=== PATIENT | female | born 1995 | race Caucasian/White ===

== ENCOUNTER 2016-09-11 07:55 | Emergency (ER) | payer BC, MEDICAID ==
[2016-09-11 08:11] VITALS: BP 115/71
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
== END 2016-09-11 08:43 ==
LOC: JD.ED 07:55
DX: T74.91XA Unspecified adult maltreatment, confirmed, initial encounter (principal); F32.9 Major depressive disorder, single episode, unspecified; Z79.899 Other long term (current) drug therapy; F17.210 Nicotine dependence, cigarettes, uncomplicated; Y07.499 Other family member, perpetrator of maltreatment and neglect
CPT/HCPCS: 99282; 99283

== ENCOUNTER 2017-01-24 10:01 | Emergency (ER) | payer BC ==
[2017-01-24 10:12] VITALS: BP 127/84
[2017-01-24] MEDS ORDERED: HYDROmorphone 0.5 MG/0.5 ML Syringe IVPUSH STA (11:07)
[2017-01-24] MEDS ORDERED: Metoclopramide 10 MG/2 ML SDV IVPUSH STA (11:07)
[2017-01-24] MEDS ORDERED: Dextrose 5%-0.9% NaCl 1,000 ML IV SCH (11:15)
--- NOTE | 2017-01-24 11:32 | EDM.PDOC ---
ED HPI GENERAL MEDICAL PROBLEM - General Chief Complaint: Headache Stated Complaint: Headache Time Seen by Provider: 01/24/17 11:00 Source of Information: Reports: Patient, RN Notes Reviewed History Limitations: Reports: No Limitations - History of Present Illness INITIAL COMMENTS - FREE TEXT/NARRATIVE: 21 year old female presents to the ED today with complaints of headache that awoke her from sleep this morning. The pain is bilateral and behind her eyes. The headaches involves her entire cranium. She has associated nausea and vomiting, photophobia and phonophobia. She reports blurry vision earlier but has since resolved. She tried taking Tylenol but vomited it up. No weakness in extremities, speech changes, or confusion. She had 5 positive tests 2 days ago at home. She tried getting into her OBGYN but wasn't able to. She is 3 Para 1, history of 1 miscarriage. She also has a history of hyperemesis . Headache Pain Score (Numeric/FACES): 10 - Related Data Allergies Allergy/AdvReac Type Severity Reaction Status Date / Time No Known Allergies Allergy Verified 01/24/17 10:12 Home Meds: Home Meds . 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 Other OB/BYN History: miscarriage Psychiatric History: Reports: Depression Other Psychiatric History: post- depression - Past Surgical History HEENT Surgical History: Reports: Oral Surgery Female Surgical History: Reports: Dilitation & Evacuation, Other (See Below) Social & Family History - Family History Family Medical History: Noncontributory - Tobacco Use Smoking Status *Q: Never Smoker Years of Tobacco use: 4 Packs/Tins Daily: 0.1 Used Tobacco, but Quit: Yes Month Tobacco Last Used: 05/2015 Second Hand Smoke Exposure: No - Caffeine Use Caffeine Use: Reports: Coffee - Alcohol Use Days Per Week of Alcohol Use: 0 - Recreational Drug Use Recreational Drug Use: No Drug Use in Last 12 Months: Yes Recreational Drug Type: Reports: Marijuana/Hashish Recreational Drug Use Frequency: Rarely - Living Situation & Occupation Living situation: Reports: Occupation: Unemployed ED ROS GENERAL - Review of Systems Review Of Systems: See Below Constitutional: Reports: No Symptoms. Denies: Fever, Chills HEENT: Reports: Vision Change. Denies: Ear Pain, Eye Pain, Vertigo Respiratory: Reports: No Symptoms Cardiovascular: Reports: No Symptoms GI/Abdominal: Reports: Nausea, Vomiting. Denies: Abdominal Pain Neurological: Reports: Headache. Denies: Confusion, Dizziness, Numbness, Tingling, Difficulty Walking, Weakness - Physical Exam Exam: See Below Exam Limited By: No Limitations General Appearance: Alert, WD/WN, No Apparent Distress Eye Exam: Bilateral Eye: EOMI, Normal Inspection, PERRL Head Exam: Atraumatic, Normocephalic Neck: Normal Inspection, Supple, Non-Tender, Full Range of Motion Respiratory/Chest: No Respiratory Distress, Lungs Clear, Normal Breath Sounds Cardiovascular: Regular Rate, Rhythm Neuro Exam (Abbreviated): Alert, Oriented, CN II-XII Intact, Normal Cognition, Normal Gait, No Motor/Sensory Deficits, Other (cerebellar testing intact ) Course - Vital Signs Last Recorded V/S: Last Vital Signs Temp 97.2 F 01/24/17 10:08 Pulse 90 01/24/17 10:08 Resp 16 01/24/17 10:08 BP 127/84 01/24/17 10:08 Pulse Ox 95 01/24/17 10:08 - Orders/Labs/Meds Orders: Active Orders 24 hr Category Date Time Status Dextrose 5%-0.9% NaCl [Dextrose 5%-Normal Saline] 1,000 Med 01/24/17 11:15 Active ml IV ASDIRECTED Medication Orders Dextrose/Sodium Chloride (Dextrose 5%-Normal Saline) 1,000 mls @ 250 mls/hr IV ASDIRECTED MAULIK Last Admin: 01/24/17 11:14 Dose: 250 mls/hr Meds: Medications Generic Name Dose Route Start Last Admin Trade Name Freq PRN Reason Stop Dose Admin Dextrose/Sodium Chloride 1,000 mls @ 250 mls/hr 01/24/17 11:15 01/24/17 11:14 Dextrose 5%-Normal Saline IV 250 mls/hr ASDIRECTED MAULIK Administration Discontinued Medications Generic Name Dose Route Start Last Admin Trade Name Freq PRN Reason Stop Dose Admin Hydromorphone HCl 0.5 mg 01/24/17 11:07 01/24/17 11:17 Dilaudid IVPUSH 01/24/17 11:08 0.5 mg ONETIME STA Administration Metoclopramide HCl 5 mg 01/24/17 11:07 01/24/17 11:14 Reglan IVPUSH 01/24/17 11:08 5 mg ONETIME STA Administration - Re-Assessments/Exams Free Text/Narrative Re-Assessment/Exam: Neuro exam and vital signs today are normal. No indication for imaging. Treated with D5NS bolus, Dilaudid, and Reglan. Patient had complete resolution of symptoms. She will be discharged. Prescription for diclegis compound from [facility] was phoned in. Patient educated on medication and return precautions. Departure - Departure Time of Disposition: 11:50 Disposition: Home, Self-Care 01 Condition: Good Clinical Impression: Headache in Qualifiers: Trimester: first trimester Qualified Code(s): O26.891 - Other specified related conditions, first trimester Nausea & vomiting Qualifiers: Vomiting type: unspecified Vomiting Intractability: non-intractable Qualified Code(s): R11.2 - Nausea with vomiting, unspecified - Discharge Information Referrals: Martita Farias PA-C [Primary Care Provider] - Forms: ED Department Discharge Additional Instructions: Rest and drink plenty of fluids No driving today due to sedating medications given in the ER Start Diclegis compound from [facility], take 1 tab at bedtime and may increase to a total of 3 tabs per day as needed for nausea This was called to [facility] pharmacy. Follow-up with your OBGYN if you continue to have nausea and vomiting not relieved by the Diclegis. Return to Er with any new or worsening symptoms. - My Orders Last 24 Hours: My Active Orders 01/24/17 11:15 Dextrose 5%-0.9% NaCl [Dextrose 5%-Normal Saline] 1,000 ml IV ASDIRECTED - Assessment/Plan Last 24 Hours: My Active Orders 01/24/17 11:15 Dextrose 5%-0.9% NaCl [Dextrose 5%-Normal Saline] 1,000 ml IV ASDIRECTED
== END 2017-01-24 12:05 | disposition home or self-care (01) ==
LOC: JD.ED 10:01
DX: O26.891 Other specified pregnancy related conditions, first trimester (principal); R51 Headache; O21.9 Vomiting of pregnancy, unspecified; F32.9 Major depressive disorder, single episode, unspecified; Z98.890 Other specified postprocedural states
CPT/HCPCS: 96361; 96374; 96375; 99284; J1170; J2765; J7042; 99283

== ENCOUNTER 2017-02-19 12:08 | Emergency (ER) | payer BC, MEDICAID ==
[2017-02-19] MEDS ORDERED: HYDROmorphone 0.5 MG/0.5 ML Syringe IVPUSH ONE ×2 (12:51→13:52)
[2017-02-19] MEDS ORDERED: Ondansetron 4 MG/2 ML SDV IVPUSH ONE (12:52)
[2017-02-19] MEDS ORDERED: Sodium Chloride 0.9% 10 ML Syringe FLUSH PRN (12:52)
[2017-02-19] MEDS ORDERED: Sodium Chloride 0.9% 1,000 ML IV SCH (13:00)
[2017-02-19] MEDS ORDERED: Acetaminophen 325 MG Tab PO ONE (13:52)
--- NOTE | 2017-02-19 14:15 | EDM.PDOC ---
ED HPI GENERAL MEDICAL PROBLEM - General Chief Complaint: Headache Stated Complaint: 8 WEEKS PREG/ HEADACHES Time Seen by Provider: 02/19/17 12:31 Source of Information: Reports: Patient, RN Notes Reviewed - History of Present Illness INITIAL COMMENTS - FREE TEXT/NARRATIVE: 21-year-old female comes in with headache, nausea and vomiting. She is about 7- 8 weeks . She's been having trouble with intermittent headaches for about the past month or so. She did have an ED visit for similar headache about 1 month ago. Her headache became much worse yesterday continuing today. Did take some Tylenol early this morning about 12 hours ago. Taken some Zofran about 8-10 hours ago. Spite that she continues to feel very nauseated and continues to have what she describes as fairly severe bilateral throbbing headache. No recent fever or chills. No neck or back discomfort. 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 Other OB/BYN History: miscarriage Psychiatric History: Reports: Depression Other Psychiatric History: post- depression - Past Surgical History HEENT Surgical History: Reports: Oral Surgery Female Surgical History: Reports: Dilitation & Evacuation, Other (See Below) Social & Family History - Family History Family Medical History: Noncontributory - Tobacco Use Smoking Status *Q: Never Smoker Years of Tobacco use: 4 Packs/Tins Daily: 0.1 Used Tobacco, but Quit: Yes Month Tobacco Last Used: 05/2015 Second Hand Smoke Exposure: No - Caffeine Use Caffeine Use: Reports: Coffee - Alcohol Use Days Per Week of Alcohol Use: 0 - Recreational Drug Use Recreational Drug Use: No Drug Use in Last 12 Months: Yes Recreational Drug Type: Reports: Marijuana/Hashish Recreational Drug Use Frequency: Rarely - Living Situation & Occupation Living situation: Reports: Occupation: Unemployed ED ROS GENERAL - Review of Systems Review Of Systems: See Below Constitutional: Denies: Fever, Chills HEENT: Denies: Sinus Problem, Vision Change Respiratory: Denies: Shortness of Breath Cardiovascular: Denies: Chest Pain GI/Abdominal: Reports: Nausea, Vomiting. Denies: Abdominal Pain Musculoskeletal: Denies: Neck Pain, Back Pain, Joint Pain Skin: Reports: No Symptoms Neurological: Reports: Headache. Denies: Trouble Speaking - Physical Exam Exam: See Below General Appearance: Alert, Moderate Distress Eye Exam: Bilateral Eye: PERRL Nose: Normal Inspection Throat/Mouth: Normal Inspection, Normal Oropharynx Head Exam: Atraumatic. No: Facial Swelling Neck: Supple, Full Range of Motion Respiratory/Chest: No Respiratory Distress, Lungs Clear Cardiovascular: Regular Rate, Rhythm Neuro Exam (Abbreviated): Alert, Oriented, No Motor/Sensory Deficits Extremities: Normal Inspection, Normal Range of Motion Skin Exam: Warm, Dry, Normal Color. No: Rash Course - Vital Signs Last Recorded V/S: Last Vital Signs Temp 98.7 F 02/19/17 12:26 Pulse 88 02/19/17 12:26 Resp 16 02/19/17 12:26 BP 117/73 02/19/17 12:26 Pulse Ox 100 02/19/17 12:26 - Orders/Labs/Meds Orders: Active Orders 24 hr Category Date Time Status Peripheral IV Care [RC] . DIRECTED Care 02/19/17 12:52 Active Sodium Chloride 0.9% [Normal Saline] 1,000 ml Med 02/19/17 13:00 Active IV ONETIME Sodium Chloride 0.9% [Saline Flush] Med 02/19/17 12:52 Active 10 ml FLUSH ASDIRECTED PRN Peripheral IV Insertion Adult [OM.PC] Stat Oth 02/19/17 12:52 Ordered Medication Orders Sodium Chloride (Normal Saline) 1,000 mls @ 999 mls/hr IV ONETIME MAULIK Last Admin: 02/19/17 13:13 Dose: 999 mls/hr Sodium Chloride (Saline Flush) 10 ml FLUSH ASDIRECTED PRN PRN Reason: Keep Vein Open Last Admin: 02/19/17 13:38 Dose: 10 ml Meds: Medications Generic Name Dose Route Start Last Admin Trade Name Freq PRN Reason Stop Dose Admin Sodium Chloride 1,000 mls @ 999 mls/hr 02/19/17 13:00 02/19/17 13:13 Normal Saline IV 999 mls/hr ONETIME MAULIK Administration Sodium Chloride 10 ml 02/19/17 12:52 02/19/17 13:38 Saline Flush FLUSH 10 ml ASDIRECTED PRN Administration Keep Vein Open Discontinued Medications Generic Name Dose Route Start Last Admin Trade Name Nicole PRN Reason Stop Dose Admin Acetaminophen 975 mg 02/19/17 13:52 02/19/17 14:02 Tylenol PO 02/19/17 13:53 975 mg NOW ONE Administration Diphenhydramine HCl 25 mg 02/19/17 14:45 02/19/17 15:06 Benadryl IVPUSH 02/19/17 14:46 25 mg ONETIME ONE Administration Hydromorphone HCl 0.5 mg 02/19/17 12:51 02/19/17 13:11 Dilaudid IVPUSH 02/19/17 12:52 0.5 mg ONETIME ONE Administration Hydromorphone HCl 0.5 mg 02/19/17 13:52 02/19/17 14:01 Dilaudid IVPUSH 02/19/17 13:53 0.5 mg ONETIME ONE Administration Metoclopramide HCl 2.5 mg 02/19/17 14:45 02/19/17 15:04 Reglan IVPUSH 02/19/17 14:46 2.5 mg ONETIME ONE Administration Ondansetron HCl 4 mg 02/19/17 12:52 02/19/17 13:13 Zofran IVPUSH 02/19/17 12:53 4 mg ONETIME ONE Administration - Re-Assessments/Exams Free Text/Narrative Re-Assessment/Exam: 02/19/17 13:50. Nausea has resolved, however headache still "fairly severe". Due to her first trimester I am more limited with meds that I can use to help treat this. Have given Dilaudid 0.5 mg IV and Zofran 4 mg IV. She is not sleepy or drowsy. Therefore repeat the Dilaudid 0.5 mg IV. Also give Tylenol 975 by mouth at this time. 02/19/17 14:46 some but still not much relief, still rating the Meek an "8-9". she looks more relaxed from arrival, still not drowsy to where she feels she can go home and sleep. Will give a small does of reglan and benadryl 25 mg IV. 02/19/17 15:26. Feeling much better, discharge instructions as documented Departure - Departure Time of Disposition: 15:27 Disposition: Home, Self-Care 01 Condition: Fair Clinical Impression: Migraine, First trimester - Discharge Information Referrals: Zeinab Monzon MD [Primary Care Provider] - Forms: ED Department Discharge Additional Instructions: rest, no driving the remainder of today. You may continue tylenol 2 to 3 times daily if needed for further headache. Follow up with your regular medical provider if not much better by Tuesday, return to ED if symptoms worsening in any way. - My Orders Last 24 Hours: My Active Orders 02/19/17 12:52 Peripheral IV Care [RC] . DIRECTED Sodium Chloride 0.9% [Saline Flush] 10 ml FLUSH ASDIRECTED PRN Peripheral IV Insertion Adult [OM.PC] Stat 02/19/17 13:00 Sodium Chloride 0.9% [Normal Saline] 1,000 ml IV ONETIME - Assessment/Plan Last 24 Hours: My Active Orders 02/19/17 12:52 Peripheral IV Care [RC] . DIRECTED Sodium Chloride 0.9% [Saline Flush] 10 ml FLUSH ASDIRECTED PRN Peripheral IV Insertion Adult [OM.PC] Stat 02/19/17 13:00 Sodium Chloride 0.9% [Normal Saline] 1,000 ml IV ONETIME
[2017-02-19] MEDS ORDERED: Metoclopramide 10 MG/2 ML SDV IVPUSH ONE (14:45)
[2017-02-19] MEDS ORDERED: diphenhydrAMINE 50 MG/ML SDV IVPUSH ONE (14:45)
[2017-02-19 16:28] VITALS: BP 107/64
== END 2017-02-19 15:54 | disposition home or self-care (01) ==
LOC: JD.ED 12:08
DX: O99.351 Diseases of the nervous system complicating pregnancy, first trimester (principal); G43.909 Migraine, unspecified, not intractable, without status migrainosus; Z79.899 Other long term (current) drug therapy; Z3A.08 8 weeks gestation of pregnancy
CPT/HCPCS: 96361; 96374; 96375; 99283; A9270; J1170; J1200; J2405; J2765; J7040; J7050; 99284

== ENCOUNTER 2017-03-18 14:43 | Emergency (ER) | payer MEDICAID ==
[2017-03-18] MEDS ORDERED: Metoclopramide 10 MG/2 ML SDV IVPUSH ONE (14:54)
[2017-03-18] MEDS ORDERED: HYDROmorphone 0.5 MG/0.5 ML Syringe IVPUSH ONE (14:54)
[2017-03-18] MEDS ORDERED: diphenhydrAMINE 50 MG/ML SDV IVPUSH ONE (14:55)
[2017-03-18 14:56] VITALS: BP 132/81
--- NOTE | 2017-03-18 14:59 | EDM.PDOC ---
ED HPI GENERAL MEDICAL PROBLEM - General Chief Complaint: Headache Stated Complaint: HEADACHE/VOMITING Time Seen by Provider: 03/18/17 14:54 Source of Information: Reports: Patient History Limitations: Reports: No Limitations - History of Present Illness INITIAL COMMENTS - FREE TEXT/NARRATIVE: 21-year-old female presents to the ED with a severe headache that she awoke with at 3:00 this morning. It is bilateral headache with constant throbbing pain. Associated nausea and vomiting and hasn't kept anything down today. Bilious emesis without blood. No fever no chills. She is prone to migraine headaches. She's been a little sicker with her the last few days with more nausea and vomiting. But clinically 11 weeks gestation. No diarrhea. She is photophobic and sounds sound louder than the or. States his headache is a little bit more intense than what she is experienced in the past. No paresthesias numbness or focal deficits in her extremities. Onset: Today Onset Date: 03/18/17 Onset Time: 03:00 Duration: Hour(s): Location: Reports: Head (Severe headache with associated nausea and vomiting) Quality: Reports: Ache, Throbbing, Other (Pounding) Severity: Severe (Grades the headache as 9 out of 10.) Improves with: Reports: None Worsens with: Reports: Other, Movement Context: Denies: Activity (Walking and standing. 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 Frontal Head Pain Score (Numeric/FACES): 10 - Related Data Allergies Allergy/AdvReac Type Severity Reaction Status Date / Time No Known Allergies Allergy Verified 03/18/17 14:56 Home Meds: Home Meds Acetaminophen with Codeine [Tylenol with Codeine #3 Tablet] 1 tab PO DAILY PRN 03/18/17 [History] Pnv with Ca,No.74/Iron/Fa [ Low Iron Tablet] 1 tab PO DAILY 03/18/17 [ History] Past Medical History - Past Health History Medical/Surgical History: Denies 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: , 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 Other OB/BYN History: miscarriage Psychiatric History: Reports: Depression Other Psychiatric History: post- depression - Past Surgical History HEENT Surgical History: Reports: Oral Surgery Female Surgical History: Reports: Dilitation & Evacuation, Other (See Below) Social & Family History - Family History Family Medical History: Noncontributory - Tobacco Use Smoking Status *Q: Never Smoker Years of Tobacco use: 4 Packs/Tins Daily: 0.1 Used Tobacco, but Quit: Yes Month Tobacco Last Used: 05/2015 Second Hand Smoke Exposure: No - Caffeine Use Caffeine Use: Reports: Coffee - Alcohol Use Days Per Week of Alcohol Use: 0 - Recreational Drug Use Recreational Drug Use: No Drug Use in Last 12 Months: Yes Recreational Drug Type: Reports: Marijuana/Hashish Recreational Drug Use Frequency: Rarely - Living Situation & Occupation Living situation: Reports: Occupation: Unemployed ED ROS GENERAL - Review of Systems Review Of Systems: See Below Constitutional: Reports: Malaise, Weakness, Fatigue. Denies: Fever, Chills HEENT: Reports: Other Respiratory: Reports: No Symptoms Cardiovascular: Reports: No Symptoms Endocrine: Reports: Fatigue GI/Abdominal: Reports: Abdominal Pain (Upper abdominal pain from vomiting so much.), Nausea, Vomiting (Bilious emesis.) : Reports: Frequency Musculoskeletal: Reports: Neck Pain Skin: Reports: No Symptoms (Some neck pain.) Neurological: Reports: Dizziness, Headache, Difficulty Walking, Weakness (Due to being sensitive to light.). Denies: Numbness, Seizure, Syncope (See history of present illness), Tingling, Change in Speech Psychiatric: Reports: No Symptoms Hematologic/Lymphatic: Reports: No Symptoms Immunologic: Reports: No Symptoms - Physical Exam Exam: See Below Exam Limited By: No Limitations General Appearance: Alert, Moderate Distress (Tries to keep her eyes closed en bloc off the light.) Eye Exam: Bilateral Eye: Normal Inspection, PERRL Nose: Normal Inspection, Normal Mucosa, No Blood Throat/Mouth: Normal Inspection, Normal Lips, Normal Teeth, Other Head Exam: Atraumatic, Normocephalic Neck: Normal Inspection, Supple, Non-Tender, Full Range of Motion. No: Lymphadenopathy (L), Lymphadenopathy (R) Respiratory/Chest: No Respiratory Distress, Lungs Clear, Normal Breath Sounds, No Accessory Muscle Use Cardiovascular: Normal Peripheral Pulses, Regular Rate, Rhythm, No Edema, No Gallop GI/Abdominal: Normal Bowel Sounds, Soft, Non-Tender, No Organomegaly, No Distention, No Abnormal Bruit, No Mass, Pelvis Stable, Other (Uterus is not palpable abdominally.) Neuro Exam (Abbreviated): Alert, Oriented, CN II-XII Intact, Normal Cognition, No Motor/Sensory Deficits, Other Back Exam: Normal Inspection, Full Range of Motion. No: CVA Tenderness (L), CVA Tenderness (R) Extremities: Normal Inspection, Normal Range of Motion, Non-Tender, Normal Capillary Refill Psychiatric: Anxious, Tearful Skin Exam: Warm, Dry, Intact, Pallor (Mild) Course - Vital Signs Last Recorded V/S: Last Vital Signs Temp 36.4 C 03/18/17 14:52 Pulse 117 H 03/18/17 14:52 Resp 20 03/18/17 14:52 BP 132/81 03/18/17 14:52 Pulse Ox 99 03/18/17 14:52 - Orders/Labs/Meds Orders: Active Orders 24 hr Category Date Time Status Dextrose 5%-0.9% NaCl [Dextrose 5%-Normal Saline] 1,000 Med 03/18/17 15:00 Active ml IV ASDIRECTED Medication Orders Dextrose/Sodium Chloride (Dextrose 5%-Normal Saline) 1,000 mls @ 999 mls/hr IV ASDIRECTED MAULIK Last Admin: 03/18/17 15:28 Dose: 999 mls/hr Meds: Medications Generic Name Dose Route Start Last Admin Trade Name Freq PRN Reason Stop Dose Admin Dextrose/Sodium Chloride 1,000 mls @ 999 mls/hr 03/18/17 15:00 03/18/17 15:28 Dextrose 5%-Normal Saline IV 999 mls/hr ASDIRECTED MAULIK Administration Discontinued Medications Generic Name Dose Route Start Last Admin Trade Name Freq PRN Reason Stop Dose Admin Diphenhydramine HCl 25 mg 03/18/17 14:55 03/18/17 15:32 Benadryl IVPUSH 03/18/17 14:56 25 mg ONETIME ONE Administration Hydromorphone HCl 0.5 mg 03/18/17 14:54 03/18/17 15:34 Dilaudid IVPUSH 03/18/17 14:55 0.5 mg ONETIME ONE Administration Metoclopramide HCl 7.5 mg 03/18/17 14:54 03/18/17 15:29 Reglan IVPUSH 03/18/17 14:55 7.5 mg ONETIME ONE Administration - Radiology Interpretation Free Text/Narrative:: 21-year-old female presents the ED with a severe headache which is I cranial since she awoke at 2:00 this morning. Associated constant nausea and vomiting. She is prone to migraines. She is also 11 weeks . Has been able to keep down anything today. Headache is rated as a 9 out of 10. She is photosensitive. Describes the headache as constant severe throbbing and pounding. Neuro exam is grossly normal. Plan IV D5 normal saline at open. Reglan 7.5 mg IV with Dilaudid 0.5 mg IV and Benadryl 25 mg IV for pain and nausea relief. - Re-Assessments/Exams Free Text/Narrative Re-Assessment/Exam: 03/18/17 16:19 she reports her headache is pretty well gone. She will therefore be discharged to home. She plans on going to bed for a few hours to see if she can break the headache cycle completely. Departure - Departure Time of Disposition: 16:20 Disposition: Home, Self-Care 01 Condition: Fair Clinical Impression: Migraine headache Qualifiers: Migraine type: unspecified Status migrainosus presence: without status migrainosus Intractability: not intractable Qualified Code(s): G43.909 - Migraine, unspecified, not intractable, without status migrainosus - Discharge Information Referrals: Zeinab Monzon MD [Primary Care Provider] - Forms: ED Department Discharge Additional Instructions: Evaluation the emergent today in regards to awakening with a severe headache this morning which precipitated recurrent nausea and vomiting. Currently 11 weeks . You're therefore treated with a liter of fluids D5 normal saline to rehydrate you and the fetus. You're given Benadryl 25 mg IV with Reglan 7.5 mg IV and Dilaudid 0.5 mg IV all medications that are felt to be safe in . Headache was markedly improved at the time of discharge. Suggest home to sleep for an hour two . Then try and resume regular diet with plenty of fluids such as Gatorade or Powerade to maintain hydration. - My Orders Last 24 Hours: My Active Orders 03/18/17 15:00 Dextrose 5%-0.9% NaCl [Dextrose 5%-Normal Saline] 1,000 ml IV ASDIRECTED - Assessment/Plan Last 24 Hours: My Active Orders 03/18/17 15:00 Dextrose 5%-0.9% NaCl [Dextrose 5%-Normal Saline] 1,000 ml IV ASDIRECTED
[2017-03-18] MEDS ORDERED: Dextrose 5%-0.9% NaCl 1,000 ML IV SCH (15:00)
== END 2017-03-18 16:40 | disposition home or self-care (01) ==
LOC: JD.ED 14:43
DX: O99.351 Diseases of the nervous system complicating pregnancy, first trimester (principal); G43.909 Migraine, unspecified, not intractable, without status migrainosus; Z87.891 Personal history of nicotine dependence; Z3A.11 11 weeks gestation of pregnancy
CPT/HCPCS: 96361; 96374; 96375; 99283; J1170; J1200; J2765; J7042; 99284

== ENCOUNTER 2017-09-28 07:12 | Inpatient (IN) | payer MEDICAID ==
[2017-09-28] MEDS ORDERED: Sodium Chloride 0.9% 10 ML Syringe FLUSH PRN (07:23)
[2017-09-28] MEDS ORDERED: Nalbuphine 20 MG/1 ML Amp IVPUSH PRN (07:23)
--- NOTE | 2017-09-28 07:27 | PCM.LDHP ---
L&D History of Present Illness - General Date of Service: 09/28/17 Admit Problem/Dx: Patient Status Order with Admit Dx/Problem 09/28/17 07:24 Patient Status [ADT] Routine Admission Diagnosis/Problem Admission Diagnosis/Problem Normal Source of Information: Patient History Limitations: Reports: No Limitations - History of Present Illness Introduction:: Patient is a 22 y/o at 39 0/7 wks who presents for elective IOL. Doing well today. Notes good FM. Has been having some contractions. 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 : 3 Para: 1 LMP (Approximate): Psychiatric History: Reports: Anxiety, Depression - Past Surgical History HEENT Surgical History: Reports: Oral Surgery Female Surgical History: Reports: Dilitation & Evacuation (Late loss - baby with omphalocele), Other (See Below) (Labioplasty) Social & Family History - Family History Family Medical History: Noncontributory - Tobacco Use Smoking Status *Q: Former Smoker Years of Tobacco use: 4 Packs/Tins Daily: 0.1 Used Tobacco, but Quit: Yes Month/Year Tobacco Last Used: 05/2015 Second Hand Smoke Exposure: No - Caffeine Use Caffeine Use: Reports: Coffee - Alcohol Use Alcohol Use History: No Days Per Week of Alcohol Use: 0 - Recreational Drug Use Recreational Drug Use: No Drug Use in Last 12 Months: Yes Recreational Drug Type: Reports: Marijuana/Hashish Recreational Drug Use Frequency: Rarely - Living Situation & Occupation Living situation: Reports: Occupation: Unemployed H&P Review of Systems - Review of Systems: Review Of Systems: See Below General: Reports: No Symptoms Pulmonary: Reports: No Symptoms Cardiovascular: Reports: No Symptoms Gastrointestinal: Reports: No Symptoms Genitourinary: Reports: No Symptoms Musculoskeletal: Reports: No Symptoms Psychiatric: Reports: No Symptoms Neurological: Reports: No Symptoms L&D Exam - Exam Exam: See Below - OB Specific Contraction Intensity: Irritability Movement: Active Heart Tones: Present Heart Tones per Min: 130 Heart Rate (FHR) Variability: Moderate (6-25 bmp) Presentation: Vertex - Tucker Score Tucker Score Cervix Position: Midposition Tucker Score Consistency: Soft Tucker Score Effacement: >80% Tucker Score Dilation: 1-2 cm Tucker Score 's Station: -1 ,0 Tucker Score Total: 9 - Exam General: Alert, Oriented, Cooperative Lungs: Clear to Auscultation, Normal Respiratory Effort Cardiovascular: Regular Rate, Regular Rhythm GI/Abdominal Exam: Soft, Non-Tender Genitourinary: Normal external exam Extremities: Normal Inspection Skin: Warm, Dry, Intact - Problem List (1) Normal SNOMED Code(s): 46811353 ICD Code: Z34.90 - ENCNTR FOR SUPRVSN OF NORMAL , UNSP, UNSP TRIMESTER Status: Acute Current Visit: No Qualifiers: Trimester: third trimester Qualified Code(s): Z34.93 - Encounter for supervision of normal , unspecified, third trimester (2) Rh negative state in antepartum period SNOMED Code(s): 745792427 ICD Code: O09.899 - SUPERVISION OF OTHER HIGH RISK PREGNANCIES, UNSP TRIMESTER Status: Acute Current Visit: No Problem List Initiated/Reviewed/Updated: Yes Orders Last 24hrs: Active Orders 24 hr Category Date Time Status Patient Status [ADT] Routine ADT 09/28/17 07:24 Ordered Activity as Tolerated [RC] PFP Care 09/28/17 07:23 Ordered Communication Order [RC] ASDIRECTED Care 09/28/17 07:23 Ordered Communication Order [RC] ASDIRECTED Care 09/28/17 07:23 Ordered Communication Order [RC] ASDIRECTED Care 09/28/17 07:23 Ordered Heart Tones [RC] ASDIRECTED Care 09/28/17 07:24 Ordered Monitoring [RC] INTERMITTENT Care 09/28/17 07:23 Ordered Notify Provider [RC] ASDIRECTED Care 09/28/17 07:23 Ordered Notify Provider [RC] PRN Care 09/28/17 07:23 Ordered Peripheral IV Care [RC] . DIRECTED Care 09/28/17 07:24 Ordered Up ad Patti [RC] ASDIRECTED Care 09/28/17 07:23 Ordered Vaginal Exam [RC] ASDIRECTED Care 09/28/17 07:23 Ordered Vital Signs [RC] ASDIRECTED Care 09/28/17 07:23 Ordered Vital Signs [RC] PER UNIT ROUTINE Care 09/28/17 07:23 Ordered Regular Diet [DIET] Diet 09/28/17 Breakfast Ordered CBC W/O DIFF,HEMOGRAM [HEME] Routine Lab 09/28/17 07:23 Ordered TYPE AND SCREEN [BBK] Routine Lab 09/28/17 07:23 Ordered Lactated Ringers [Ringers, Lactated] 1,000 ml Med 09/28/17 07:30 Ordered IV ASDIRECTED Nalbuphine [Nubain] Med 09/28/17 07:23 Ordered 10 mg IVPUSH Q2H PRN Ondansetron [Zofran] Med 09/28/17 07:23 Ordered 4 mg IVPUSH Q4H PRN Oxytocin/Lactated Ringers [Pitocin in LR 10 Units/1,000 Med 09/28/17 07:30 Ordered ML] 10 unit in 1,000 ml IV .CONTINUOUS Oxytocin/Lactated Ringers [Pitocin in LR 10 Units/1,000 Med 09/28/17 07:30 Ordered ML] 10 unit in 1,000 ml IV TITRATE Sodium Chloride 0.9% [Saline Flush] Med 09/28/17 07:23 Ordered 10 ml FLUSH ASDIRECTED PRN Electronic Heart Tones Ext w TOCO [WOMSER] Oth 09/28/17 07:23 Ordered Routine Electronic Heart Tones Internal [WOMSER] Per Unit Oth 09/28/17 07:23 Ordered Routine Peripheral IV Insertion Adult [OM.PC] Routine Oth 09/28/17 07:23 Ordered Resuscitation Status Routine Resus Stat 09/28/17 07:23 Ordered Assessment/Plan Comment:: 22 y/o at 39 0/7 wks who presents for elective IOL * CBC and T&S * GBS negative, no need for antibiotics * Pitocin and then AROM when able * Pain management per patient preference * UDS and cord segment, history of marijuana use
[2017-09-28] MEDS ORDERED: Oxytocin/Lactated Ringers 10 UNIT/1,000 ML BAG IV SCH ×2 (07:30)
[2017-09-28] MEDS: Lactated Ringers 1,000 ML IV SCH ×4 (08:30→16:41)
--- NOTE | 2017-09-28 10:27 | PCM.PREANE ---
Preanesthetic Assessment - Procedure Proposed Procedure: DOROTHY - Anesthesia/Transfusion/Family Hx Anesthesia History: Prior Anesthesia Without Reaction Family History of Anesthesia Reaction: No Transfusion History: No Prior Transfusion(s) - Review of Systems General: No Symptoms Pulmonary: No Symptoms Cardiovascular: No Symptoms Gastrointestinal: No Symptoms Neurological: No Symptoms Other: Reports: None - Physical Assessment NPO Status Date: 09/28/17 NPO Status Time: 08:00 Pulse: 93 Respiratory Rate: 15 Blood Pressure: 124/77 Vital Signs: Last Vital Signs Temp 36.4 C 09/28/17 07:23 Pulse 93 09/28/17 08:27 Resp 15 09/28/17 07:23 BP 124/77 09/28/17 08:27 Pulse Ox Height: 1.52 m Weight: 69.4 kg ASA Class: 2 Mental Status: Alert & Oriented x3 Airway Class: Mallampati = 1 Dentition: Reports: Normal Dentition Thyro-Mental Finger Breadths: 3 Mouth Opening Finger Breadths: 3 ROM/Head Extension: Full Lungs: Clear to Auscultation, Normal Respiratory Effort Cardiovascular: Regular Rate, Regular Rhythm - Lab Values: Laboratory Last Values WBC 8.05 K/mm3 (3.98-10.04) 09/28/17 07:40 RBC 4.37 M/mm3 (3.98-5.22) 09/28/17 07:40 Hgb 10.7 gm/L (11.2-15.7) L 09/28/17 07:40 Hct 34.4 % (34.1-44.9) 09/28/17 07:40 MCV 78.7 fl (79.4-94.8) L 09/28/17 07:40 MCH 24.5 pg (25.6-32.2) L 09/28/17 07:40 MCHC 31.1 g/dl (32.2-35.5) L 09/28/17 07:40 RDW Std Deviation 41.3 fL (36.4-46.3) 09/28/17 07:40 Plt Count 162 K/mm3 (182-369) L 09/28/17 07:40 MPV 10.9 fl (9.4-12.3) 09/28/17 07:40 Urine Opiates Screen Negative (NEGATIVE) 09/28/17 08:45 Ur Buprenorphine Scrn Negative (NEGATIVE) 09/28/17 08:45 Ur Oxycodone Screen Negative (NEGATIVE) 09/28/17 08:45 Urine Methadone Screen Negative (NEGATIVE) 09/28/17 08:45 Ur Propoxyphene Screen Negative (NEGATIVE) 09/28/17 08:45 Ur Barbiturates Screen Negative (NEGATIVE) 09/28/17 08:45 Ur Tricyclics Screen Negative (NEGATIVE) 09/28/17 08:45 Ur Phencyclidine Scrn Negative (NEGATIVE) 09/28/17 08:45 Ur Amphetamine Screen Negative (NEGATIVE) 09/28/17 08:45 U Methamphetamines Scrn Negative (NEGATIVE) 09/28/17 08:45 U Benzodiazepines Scrn Negative (NEGATIVE) 09/28/17 08:45 U Cocaine Metab Screen Negative (NEGATIVE) 09/28/17 08:45 U Marijuana (THC) Screen Negative (NEGATIVE) 09/28/17 08:45 Blood Type O NEGATIVE 09/28/17 07:40 Gel Antibody Screen Positive 09/28/17 07:40 - Allergies Allergies/Adverse Reactions: Allergies Allergy/AdvReac Type Severity Reaction Status Date / Time No Known Allergies Allergy Verified 09/26/17 17:31 - Blood Blood Available: No Product(s) Available: None - Anesthesia Plan Pre-Op Medication Ordered: None - Acknowledgements Anesthesia Type Planned: Epidural Pt an Appropriate Candidate for the Planned Anesthesia: Yes Alternatives and Risks of Anesthesia Discussed w Pt/Guardian: Yes Pt/Guardian Understands and Agrees with Anesthesia Plan: Yes PreAnesthesia Questionnaire - Past Health History Medical/Surgical History: Denies 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: , 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 Other OB/BYN History: miscarriage Psychiatric History: Reports: Anxiety, Depression, Other (See Below) Other Psychiatric History: depression - Past Surgical History HEENT Surgical History: Reports: Oral Surgery Female Surgical History: Reports: Dilitation & Evacuation, Other (See Below) - SUBSTANCE USE Smoking Status *Q: Former Smoker Tobacco Use Within Last Twelve Months: Cigarettes Second Hand Smoke Exposure: No Days Per Week of Alcohol Use: 0 Recreational Drug Use History: Yes Recreational Drug Type: Reports: Marijuana/Hashish - HOME MEDS Home Medications: Home Meds Acetaminophen with Codeine [Tylenol with Codeine #3 Tablet] 1 tab PO DAILY PRN 03/18/17 [History] Pnv with Ca,No.74/Iron/Fa [ Low Iron Tablet] 1 tab PO DAILY 03/18/17 [ History] - CURRENT (IN HOUSE) MEDS Current Meds: Current Medications Lactated Ringer's (Ringers, Lactated) 1,000 mls @ 40 mls/hr IV ASDIRECTED MAULIK Last Admin: 09/28/17 08:30 Dose: 40 mls/hr Oxytocin/Lactated Ringer's (Pitocin In Lr 10 Units/1,000 Ml) 10 unit in 1,000 mls @ 12 mls/hr IV TITRATE MAULIK; Protocol Last Titration: 09/28/17 09:03 Dose: 4 munits/min, 24 mls/hr Oxytocin/Lactated Ringer's (Pitocin In Lr 10 Units/1,000 Ml) 10 unit in 1,000 mls @ 500 mls/hr IV .CONTINUOUS MAULIK Nalbuphine HCl (Nubain) 10 mg IVPUSH Q2H PRN PRN Reason: Pain (moderate 4-6) Ondansetron HCl (Zofran) 4 mg IVPUSH Q4H PRN PRN Reason: Nausea/Vomiting Sodium Chloride (Saline Flush) 10 ml FLUSH ASDIRECTED PRN PRN Reason: Keep Vein Open
--- NOTE | 2017-09-28 11:03 | PCM.PNLD ---
Labor Progress Note - VS & Meds Vital Signs: Last Vital Signs Temp 36.4 C 09/28/17 07:23 Pulse 93 09/28/17 10:27 Resp 15 09/28/17 10:27 BP 124/77 09/28/17 10:27 Pulse Ox Active Medications: Current Medications Lactated Ringer's (Ringers, Lactated) 1,000 mls @ 40 mls/hr IV ASDIRECTED MAULIK Last Admin: 09/28/17 08:30 Dose: 40 mls/hr Oxytocin/Lactated Ringer's (Pitocin In Lr 10 Units/1,000 Ml) 10 unit in 1,000 mls @ 12 mls/hr IV TITRATE MAULIK; Protocol Last Titration: 09/28/17 09:03 Dose: 4 munits/min, 24 mls/hr Oxytocin/Lactated Ringer's (Pitocin In Lr 10 Units/1,000 Ml) 10 unit in 1,000 mls @ 500 mls/hr IV .CONTINUOUS MAULIK Nalbuphine HCl (Nubain) 10 mg IVPUSH Q2H PRN PRN Reason: Pain (moderate 4-6) Ondansetron HCl (Zofran) 4 mg IVPUSH Q4H PRN PRN Reason: Nausea/Vomiting Sodium Chloride (Saline Flush) 10 ml FLUSH ASDIRECTED PRN PRN Reason: Keep Vein Open - Uterine Contractions Uterine Monitoring Mode: External Calcium Contraction Intensity: Mild to Moderate - Monitoring Monitor Mode: External Ultrasound Heart Rate (FHR) Baseline: 135 Heart Rate (FHR) Variability: Moderate (6-25 bmp) Accelerations: Present, 15x15 Decelerations: None Strip Review: Category I - Vaginal Exam Dilation (cm): 2 Effacement (Percent): 80 Station: -1 Cervical Position: Midposition - Labor Progress (Free Text) Labor Progress: Doing well. On 8 of pitocin. AROM performed with release of moderate amount of clear fluid. Continue present management otherwise.
[2017-09-28] MEDS ORDERED: diphenhydrAMINE 50 MG/ML SDV IVPUSH PRN (11:56)
[2017-09-28] MEDS ORDERED: fentaNYL 100 MCG/2 ML SDV EPIDUR PRN (11:56)
[2017-09-28] MEDS ORDERED: ePHEDrine 50 MG/ML SDV IVPUSH PRN (11:56)
[2017-09-28] MEDS ORDERED: Ondansetron 4 MG/2 ML SDV IVPUSH PRN (11:56)
[2017-09-28] MEDS: Ondansetron 4 MG/2 ML SDV IVPUSH PRN ×2 (12:01→19:39)
[2017-09-28] MEDS: Bupivacaine/fentaNYL/NS 100 ML Bag EPIDUR SCH ×2 (12:44→17:21)
[2017-09-28] MEDS ORDERED: Bupivacaine 0.25% 10 ML SDV ONE (16:00)
[2017-09-28] MEDS ORDERED: Misoprostol 200 MCG Tab ONE (18:52)
[2017-09-28] MEDS ORDERED: Misoprostol 200 MCG Tab PO STA (19:04)
--- NOTE | 2017-09-28 19:08 | PCM.DEL ---
L & D Note - General Info Date of Service: 09/28/17 - Delivery Note Labor: Induced by ARM, Induced by Oxytocin Delivery Outcome: Livebirth Infant Delivery Method: Spontaneous Vaginal Delivery-Single Infant Delivery Mode: Spontaneous Presentation: Right Occiput Anterior (TIMUR) (With compound hand) Nuchal Cord: Present, Reduced Anesthesia Type: Epidural Episiotomy Type: None Laceration: 2nd Degree, Perineal Suture type: Vicryl Suture size: 2-0 Placenta: Intact, Spontaneous Cord: 3 Vessels Estimated Blood Loss: 400 Resuscitation Needed: Yes Crystal: Bulb Syringe, Stimulated, Warmed, Hope Used Delivery Comments (Free Text/Narrative):: Patient found to be complete and began pushing. With maternal pushing effort head delivered from an TIMUR presentation with a compound hand. Nuchal cord present and reduced. With gentle downward traction shoulders and body delivered. placed on maternal abdomen. Cord clamped and cut. Cord blood obtained. Placenta allowed time to separate and expelled intact. Cord segment obtained. Inspection of the perineum showed a 2nd degree laceration repaired with a 2-0 vicryl in he typical fashion - Patient Data Vitals - Most Recent: Last Vital Signs Temp 36.4 C 09/28/17 07:23 Pulse 93 09/28/17 10:27 Resp 15 09/28/17 10:27 BP 124/77 09/28/17 10:27 Pulse Ox Weight - Most Recent: 69.4 kg I&O - Last 24 Hours: Intake & Output 09/28/17 09/28/17 09/28/17 06:59 14:59 22:59 Intake Total 240 3240 Balance 240 3240 Lab Results Last 24 Hours: Laboratory Results - last 24 hr 09/28/17 09/28/17 09/28/17 Range/Units 07:40 07:40 08:45 WBC 8.05 (3.98-10.04) K/mm3 RBC 4.37 (3.98-5.22) M/mm3 Hgb 10.7 L (11.2-15.7) gm/L Hct 34.4 (34.1-44.9) % MCV 78.7 L (79.4-94.8) fl MCH 24.5 L (25.6-32.2) pg MCHC 31.1 L (32.2-35.5) g/dl RDW Std Deviation 41.3 (36.4-46.3) fL Plt Count 162 L (182-369) K/mm3 MPV 10.9 (9.4-12.3) fl Urine Opiates Screen Negative (NEGATIVE) Ur Buprenorphine Scrn Negative (NEGATIVE) Ur Oxycodone Screen Negative (NEGATIVE) Urine Methadone Screen Negative (NEGATIVE) Ur Propoxyphene Screen Negative (NEGATIVE) Ur Barbiturates Screen Negative (NEGATIVE) Ur Tricyclics Screen Negative (NEGATIVE) Ur Phencyclidine Scrn Negative (NEGATIVE) Ur Amphetamine Screen Negative (NEGATIVE) U Methamphetamines Scrn Negative (NEGATIVE) U Benzodiazepines Scrn Negative (NEGATIVE) U Cocaine Metab Screen Negative (NEGATIVE) U Marijuana (THC) Screen Negative (NEGATIVE) Blood Type O NEGATIVE Gel Antibody Screen Positive Med Orders - Current: Current Medications Diphenhydramine HCl (Benadryl) 25 mg IVPUSH Q6H PRN PRN Reason: Pruritis Ephedrine Sulfate (Ephedrine Sulfate) 5 mg IVPUSH ASDIRECTED PRN PRN Reason: Hypotension Fentanyl (Sublimaze) 100 mcg EPIDUR Q3H PRN PRN Reason: Pain Last Admin: 09/28/17 12:43 Dose: 100 mcg Fentanyl/Bupivacaine HCl (Fentanyl/Bupivacaine/Ns 2 Mcg-0.125% 100 Ml) 100 ml EPIDUR ASDIRECTED MAULIK Last Admin: 09/28/17 17:21 Dose: 100 ml Lactated Ringer's (Ringers, Lactated) 1,000 mls @ 40 mls/hr IV ASDIRECTED MAULIK Last Admin: 09/28/17 16:41 Dose: 40 mls/hr Oxytocin/Lactated Ringer's (Pitocin In Lr 10 Units/1,000 Ml) 10 unit in 1,000 mls @ 12 mls/hr IV TITRATE MAULIK; Protocol Last Titration: 09/28/17 15:30 Dose: 14 munits/min, 84 mls/hr Oxytocin/Lactated Ringer's (Pitocin In Lr 10 Units/1,000 Ml) 10 unit in 1,000 mls @ 500 mls/hr IV .CONTINUOUS MAULIK Nalbuphine HCl (Nubain) 10 mg IVPUSH Q2H PRN PRN Reason: Pain (moderate 4-6) Last Admin: 09/28/17 11:31 Dose: 10 mg Ondansetron HCl (Zofran) 4 mg IVPUSH Q4H PRN PRN Reason: Nausea/Vomiting Last Admin: 09/28/17 12:01 Dose: 4 mg Ondansetron HCl (Zofran) 4 mg IVPUSH ONETIME PRN PRN Reason: Nausea/Vomiting Sodium Chloride (Saline Flush) 10 ml FLUSH ASDIRECTED PRN PRN Reason: Keep Vein Open Discontinued Medications Misoprostol (Cytotec) Confirm Administered Dose 600 mcg .ROUTE .STK-MED ONE Stop: 09/28/17 18:53 Misoprostol (Cytotec) 600 mcg PO NOW STA Stop: 09/28/17 19:05 - Problem List & Annotations (1) Normal SNOMED Code(s): 89154814 Code(s): Z34.90 - ENCNTR FOR SUPRVSN OF NORMAL , UNSP, UNSP TRIMESTER Status: Acute Current Visit: No Qualifiers: Trimester: third trimester Qualified Code(s): Z34.93 - Encounter for supervision of normal , unspecified, third trimester (2) Rh negative state in antepartum period SNOMED Code(s): 454739567 Code(s): O09.899 - SUPERVISION OF OTHER HIGH RISK PREGNANCIES, UNSP TRIMESTER Status: Acute Current Visit: No (3) Vaginal delivery SNOMED Code(s): 598581078 Code(s): O80 - ENCOUNTER FOR FULL-TERM UNCOMPLICATED DELIVERY Status: Acute Current Visit: No - Problem List Review Problem List Initiated/Reviewed/Updated: Yes - My Orders Last 24 Hours: My Active Orders 09/28/17 07:23 Activity as Tolerated [RC] PFP Communication Order [RC] ASDIRECTED Communication Order [RC] ASDIRECTED Communication Order [RC] ASDIRECTED Notify Provider [RC] ASDIRECTED Notify Provider [RC] PRN Up ad Patti [RC] ASDIRECTED Vital Signs [RC] ASDIRECTED Nalbuphine [Nubain] 10 mg IVPUSH Q2H PRN Ondansetron [Zofran] 4 mg IVPUSH Q4H PRN Sodium Chloride 0.9% [Saline Flush] 10 ml FLUSH ASDIRECTED PRN Electronic Heart Tones Ext w TOCO [WOMSER] Routine Electronic Heart Tones Internal [WOMSER] Per Unit Routine Peripheral IV Insertion Adult [OM.PC] Routine Resuscitation Status Routine 09/28/17 07:24 Patient Status [ADT] Routine Peripheral IV Care [RC] . DIRECTED 09/28/17 07:30 Lactated Ringers [Ringers, Lactated] 1,000 ml IV ASDIRECTED Oxytocin/Lactated Ringers [Pitocin in LR 10 Units/1,000 ML] 10 unit in 1,000 ml IV .CONTINUOUS Oxytocin/Lactated Ringers [Pitocin in LR 10 Units/1,000 ML] 10 unit in 1,000 ml IV TITRATE 09/28/17 07:40 ANTIBODY IDENTIFICATION [BBK] Routine TYPE AND SCREEN [BBK] Routine 09/28/17 08:45 DRUG SCREEN, URINE [URCHEM] Routine 09/28/17 14:46 Urinary Catheter Assessment [RC] ASDIRECTED 09/28/17 19:04 Patient Status Manage Transfer [TRANSFER] Routine 09/28/17 Breakfast Regular Diet [DIET] - Assessment Assessment:: 22 y/o G3 now P2012 PPD#0 from at 39 wks - Plan Plan:: * Routine cares * Encourage breast feeding * Possible Rhogam, will assess baby blood type * Discharge home in 1-2 days
[2017-09-28] MEDS ORDERED: Docusate Sodium 100 MG Cap PO PRN (19:48)
[2017-09-28] MEDS ORDERED: Benzocaine/Menthol 20%-0.5% Spray 56 GM Canister TOP PRN (19:48)
[2017-09-28] MEDS ORDERED: Lanolin 100% Cream 7 GM Tube TOP PRN (19:48)
[2017-09-28] MEDS ORDERED: Witch Hazel Medicated Pads 100/Jar TOP PRN (19:48)
[2017-09-28] MEDS: Ibuprofen 600 MG Tab PO PRN (20:37)
[2017-09-28] MEDS: Acetaminophen 325 MG Tab PO PRN (22:57)
[2017-09-29] MEDS: Ibuprofen 600 MG Tab PO PRN ×2 (04:00→12:09)
[2017-09-29] MEDS: Acetaminophen 325 MG Tab PO PRN (06:44)
--- NOTE | 2017-09-29 07:02 | PCM.PNPP ---
- General Info Date of Service: 09/29/17 Functional Status: Reports: Pain Controlled, Tolerating Diet, Ambulating, Urinating - Review of Systems General: Reports: No Symptoms Pulmonary: Reports: No Symptoms Cardiovascular: Reports: No Symptoms Gastrointestinal: Reports: Abdominal Pain (Significant cramping) Genitourinary: Reports: No Symptoms Musculoskeletal: Reports: No Symptoms - Patient Data Vital Signs - Most Recent: Last Vital Signs Temp 37.2 C 09/29/17 04:00 Pulse 79 09/29/17 04:01 Resp 16 09/29/17 04:01 BP 106/61 09/29/17 04:00 Pulse Ox 100 09/29/17 04:01 Weight - Most Recent: 69.4 kg I&O - Last 24 Hours: Intake & Output 09/28/17 09/29/17 09/29/17 22:59 06:59 14:59 Intake Total 4740 Balance 4740 Lab Results - Last 24 Hours: Laboratory Results - last 24 hr 09/28/17 09/28/17 09/28/17 Range/Units 07:40 07:40 08:45 WBC 8.05 (3.98-10.04) K/mm3 RBC 4.37 (3.98-5.22) M/mm3 Hgb 10.7 L (11.2-15.7) gm/L Hct 34.4 (34.1-44.9) % MCV 78.7 L (79.4-94.8) fl MCH 24.5 L (25.6-32.2) pg MCHC 31.1 L (32.2-35.5) g/dl RDW Std Deviation 41.3 (36.4-46.3) fL Plt Count 162 L (182-369) K/mm3 MPV 10.9 (9.4-12.3) fl Urine Opiates Screen Negative (NEGATIVE) Ur Buprenorphine Scrn Negative (NEGATIVE) Ur Oxycodone Screen Negative (NEGATIVE) Urine Methadone Screen Negative (NEGATIVE) Ur Propoxyphene Screen Negative (NEGATIVE) Ur Barbiturates Screen Negative (NEGATIVE) Ur Tricyclics Screen Negative (NEGATIVE) Ur Phencyclidine Scrn Negative (NEGATIVE) Ur Amphetamine Screen Negative (NEGATIVE) U Methamphetamines Scrn Negative (NEGATIVE) U Benzodiazepines Scrn Negative (NEGATIVE) U Cocaine Metab Screen Negative (NEGATIVE) U Marijuana (THC) Screen Negative (NEGATIVE) Blood Type O NEGATIVE Gel Antibody Screen Positive Med Orders - Current: Current Medications Acetaminophen (Tylenol) 650 mg PO Q4H PRN PRN Reason: mild pain or fever Last Admin: 09/29/17 06:44 Dose: 650 mg Benzocaine/Menthol (Dermoplast Pain Relief [place]) 0 gm TOP ASDIRECTED PRN PRN Reason: Perineal Comfort Measure Last Admin: 09/28/17 20:38 Dose: 1 applic Docusate Sodium (Colace) 100 mg PO BID PRN PRN Reason: Constipation Last Admin: 09/28/17 20:37 Dose: 100 mg Emollient Ointment (Lansinoh Hpa) 0 gm TOP ASDIRECTED PRN PRN Reason: Sore Nipples Last Admin: 09/28/17 20:38 Dose: 1 applic Ibuprofen (Motrin) 600 mg PO Q6H PRN PRN Reason: Mild pain or fever Last Admin: 09/29/17 04:00 Dose: 600 mg Witch Phoebe (Tucks) 1 pad TOP ASDIRECTED PRN PRN Reason: Hemorrhoid pain Last Admin: 09/28/17 20:39 Dose: 1 applic Discontinued Medications Diphenhydramine HCl (Benadryl) 25 mg IVPUSH Q6H PRN PRN Reason: Pruritis Ephedrine Sulfate (Ephedrine Sulfate) 5 mg IVPUSH ASDIRECTED PRN PRN Reason: Hypotension Fentanyl (Sublimaze) 100 mcg EPIDUR Q3H PRN PRN Reason: Pain Last Admin: 09/28/17 12:43 Dose: 100 mcg Fentanyl/Bupivacaine HCl (Fentanyl/Bupivacaine/Ns 2 Mcg-0.125% 100 Ml) 100 ml EPIDUR ASDIRECTED MAULIK Last Admin: 09/28/17 17:21 Dose: 100 ml Lactated Ringer's (Ringers, Lactated) 1,000 mls @ 40 mls/hr IV ASDIRECTED MAULIK Last Admin: 09/28/17 16:41 Dose: 40 mls/hr Oxytocin/Lactated Ringer's (Pitocin In Lr 10 Units/1,000 Ml) 10 unit in 1,000 mls @ 12 mls/hr IV TITRATE MAULIK; Protocol Last Titration: 09/28/17 18:42 Dose: 999 mls/hr Oxytocin/Lactated Ringer's (Pitocin In Lr 10 Units/1,000 Ml) 10 unit in 1,000 mls @ 500 mls/hr IV .CONTINUOUS MAULIK Misoprostol (Cytotec) Confirm Administered Dose 600 mcg .ROUTE .STK-MED ONE Stop: 09/28/17 18:53 Last Admin: 09/28/17 19:45 Dose: Not Given Misoprostol (Cytotec) 600 mcg PO NOW STA Stop: 09/28/17 19:05 Last Admin: 09/28/17 18:55 Dose: 600 mcg Nalbuphine HCl (Nubain) 10 mg IVPUSH Q2H PRN PRN Reason: Pain (moderate 4-6) Last Admin: 09/28/17 11:31 Dose: 10 mg Ondansetron HCl (Zofran) 4 mg IVPUSH Q4H PRN PRN Reason: Nausea/Vomiting Last Admin: 09/28/17 19:39 Dose: 4 mg Ondansetron HCl (Zofran) 4 mg IVPUSH ONETIME PRN PRN Reason: Nausea/Vomiting Sodium Chloride (Saline Flush) 10 ml FLUSH ASDIRECTED PRN PRN Reason: Keep Vein Open - Infant Interaction Disposition, : in Room with Family Interaction: Holding Infant Feeding: Breastfed ; Nursed Well Support Person: Significant Other - Recovery Exam Fundal Tone: Firm Fundal Level: At Umbilicus Fundal Placement: Midline Lochia Amount: Small Lochia Color: Rubra/Red Perineum Description: Edematous Episiotomy/Laceration: Approximated Bladder Status: Nonpalpable Urinary Elimination: Voided - Exam General: Alert, Oriented, Cooperative GI/Abdominal Exam: Soft, Non-Tender Extremities: Normal Inspection Skin: Warm, Dry, Intact - Problem List & Annotations (1) Normal SNOMED Code(s): 25012657 Code(s): Z34.90 - ENCNTR FOR SUPRVSN OF NORMAL , UNSP, UNSP TRIMESTER Status: Acute Current Visit: No Qualifiers: Trimester: third trimester Qualified Code(s): Z34.93 - Encounter for supervision of normal , unspecified, third trimester (2) Rh negative state in antepartum period SNOMED Code(s): 164945917 Code(s): O09.899 - SUPERVISION OF OTHER HIGH RISK PREGNANCIES, UNSP TRIMESTER Status: Acute Current Visit: No (3) Vaginal delivery SNOMED Code(s): 645368622 Code(s): O80 - ENCOUNTER FOR FULL-TERM UNCOMPLICATED DELIVERY Status: Acute Current Visit: No - Problem List Review Problem List Initiated/Reviewed/Updated: Yes - My Orders Last 24 Hours: My Active Orders 09/28/17 07:23 Resuscitation Status Routine 09/28/17 07:24 Peripheral IV Care [RC] . DIRECTED 09/28/17 07:40 ANTIBODY IDENTIFICATION [BBK] Routine TYPE AND SCREEN [BBK] Routine 09/28/17 19:48 Activity as Tolerated [RC] PER UNIT ROUTINE Vital Signs [RC] 04,12,20 Acetaminophen [Tylenol] 650 mg PO Q4H PRN Benzocaine/Menthol [Dermoplast Pain Relief [place]] See Dose Instructions TOP ASDIRECTED PRN Docusate Sodium [Colace] 100 mg PO BID PRN Ibuprofen [Motrin] 600 mg PO Q6H PRN Lanolin [Lansinoh HPA] See Dose Instructions TOP ASDIRECTED PRN Witch Phoebe [Tucks] 1 pad TOP ASDIRECTED PRN Assess Lochia [WOMSER] Per Unit Routine Assess Uterine Involution [WOMSER] Per Unit Routine Breast Pump [WOMSER] Per Unit Routine Heat Therapy [OM.PC] PRN Ice Therapy [OM.PC] Per Unit Routine Perineal Care [OM.PC] Per Unit Routine Peripheral IV Discontinue [OM.PC] Routine Sitz Bath [OM.PC] Per Unit Routine 09/28/17 Dinner Regular Diet [DIET] 09/29/17 07:00 Ready for Discharge [RC] PER UNIT ROUTINE 09/29/17 19:48 Heat Therapy [OM.PC] PRN - Assessment Assessment:: 22 y/o G3 now P2012 PPD#1 from at 39 wks - Plan Plan:: * Routine cares * Encourage breast feeding * Patient RH negative, baby Rh negative, no need for further Rhogam * Discharge home today
--- NOTE | 2017-09-29 07:04 | PCM.DCSUM1 ---
Discharge Summary - Discharge Data Discharge Date: 09/29/17 Discharge Disposition: Home, Self-Care 01 Condition: Good - Discharge Diagnosis/Problem(s) (1) Normal SNOMED Code(s): 98059431 ICD Code: Z34.90 - ENCNTR FOR SUPRVSN OF NORMAL , UNSP, UNSP TRIMESTER Status: Acute Current Visit: No Qualifiers: Trimester: third trimester Qualified Code(s): Z34.93 - Encounter for supervision of normal , unspecified, third trimester (2) Rh negative state in antepartum period SNOMED Code(s): 015421619 ICD Code: O09.899 - SUPERVISION OF OTHER HIGH RISK PREGNANCIES, UNSP TRIMESTER Status: Acute Current Visit: No (3) Vaginal delivery SNOMED Code(s): 792134662 ICD Code: O80 - ENCOUNTER FOR FULL-TERM UNCOMPLICATED DELIVERY Status: Acute Current Visit: No - Patient Summary/Data Complications: None Consults: None Recommended Follow-up Testing/Procedures: Follow up in 3-6 weeks for check Hospital Course: Patient is a 22 y/o who presented at 39 0/7 wks gestation for IOL. This was done with pitocin and AROM. She progressed well to complete dilation and underwent an uncomplicated . See delivery note. she did well and was discharged home on PPD#1 - Patient Instructions Diet: Regular Diet as Tolerated Activity: As Tolerated Activity, Other: Pelvic Rest for 6 weeks Driving: May Drive Today Showering/Bathing: May Shower Showering/Bathing, Other: May Bathe Notify Provider of: Fever, Increased Pain, Swelling and Redness, Drainage, Nausea and/or Vomiting - Discharge Plan Home Medications: Home Meds Pnv with Ca,No.74/Iron/Fa [ Low Iron Tablet] 1 tab PO DAILY 03/18/17 [ History] Docusate Sodium [Colace] 100 mg PO BID PRN cap 09/28/17 [Rx] Ibuprofen [IJD: Ibuprofen] 600 mg PO Q6H PRN tablet 09/28/17 [Rx] Referrals: Zeinab Monzon MD [Primary Care Provider] - (3-6 weeks for check ) - Discharge Summary/Plan Comment DC Time >30 min.: No - Patient Data Vitals - Most Recent: Last Vital Signs Temp 37.2 C 09/29/17 04:00 Pulse 79 09/29/17 04:01 Resp 16 09/29/17 04:01 BP 106/61 09/29/17 04:00 Pulse Ox 100 09/29/17 04:01 Weight - Most Recent: 69.4 kg I&O - Last 24 hours: Intake & Output 09/28/17 09/29/17 09/29/17 22:59 06:59 14:59 Intake Total 4740 Balance 4740 Lab Results - Last 24 hrs: Laboratory Results - last 24 hr 09/28/17 09/28/17 09/28/17 Range/Units 07:40 07:40 08:45 WBC 8.05 (3.98-10.04) K/mm3 RBC 4.37 (3.98-5.22) M/mm3 Hgb 10.7 L (11.2-15.7) gm/L Hct 34.4 (34.1-44.9) % MCV 78.7 L (79.4-94.8) fl MCH 24.5 L (25.6-32.2) pg MCHC 31.1 L (32.2-35.5) g/dl RDW Std Deviation 41.3 (36.4-46.3) fL Plt Count 162 L (182-369) K/mm3 MPV 10.9 (9.4-12.3) fl Urine Opiates Screen Negative (NEGATIVE) Ur Buprenorphine Scrn Negative (NEGATIVE) Ur Oxycodone Screen Negative (NEGATIVE) Urine Methadone Screen Negative (NEGATIVE) Ur Propoxyphene Screen Negative (NEGATIVE) Ur Barbiturates Screen Negative (NEGATIVE) Ur Tricyclics Screen Negative (NEGATIVE) Ur Phencyclidine Scrn Negative (NEGATIVE) Ur Amphetamine Screen Negative (NEGATIVE) U Methamphetamines Scrn Negative (NEGATIVE) U Benzodiazepines Scrn Negative (NEGATIVE) U Cocaine Metab Screen Negative (NEGATIVE) U Marijuana (THC) Screen Negative (NEGATIVE) Blood Type O NEGATIVE Gel Antibody Screen Positive Med Orders - Current: Current Medications Acetaminophen (Tylenol) 650 mg PO Q4H PRN PRN Reason: mild pain or fever Last Admin: 09/29/17 06:44 Dose: 650 mg Benzocaine/Menthol (Dermoplast Pain Relief [place]) 0 gm TOP ASDIRECTED PRN PRN Reason: Perineal Comfort Measure Last Admin: 09/28/17 20:38 Dose: 1 applic Docusate Sodium (Colace) 100 mg PO BID PRN PRN Reason: Constipation Last Admin: 09/28/17 20:37 Dose: 100 mg Emollient Ointment (Lansinoh Hpa) 0 gm TOP ASDIRECTED PRN PRN Reason: Sore Nipples Last Admin: 09/28/17 20:38 Dose: 1 applic Ibuprofen (Motrin) 600 mg PO Q6H PRN PRN Reason: Mild pain or fever Last Admin: 09/29/17 04:00 Dose: 600 mg Witch Phoebe (Tucks) 1 pad TOP ASDIRECTED PRN PRN Reason: Hemorrhoid pain Last Admin: 09/28/17 20:39 Dose: 1 applic Discontinued Medications Diphenhydramine HCl (Benadryl) 25 mg IVPUSH Q6H PRN PRN Reason: Pruritis Ephedrine Sulfate (Ephedrine Sulfate) 5 mg IVPUSH ASDIRECTED PRN PRN Reason: Hypotension Fentanyl (Sublimaze) 100 mcg EPIDUR Q3H PRN PRN Reason: Pain Last Admin: 09/28/17 12:43 Dose: 100 mcg Fentanyl/Bupivacaine HCl (Fentanyl/Bupivacaine/Ns 2 Mcg-0.125% 100 Ml) 100 ml EPIDUR ASDIRECTED MAULIK Last Admin: 09/28/17 17:21 Dose: 100 ml Lactated Ringer's (Ringers, Lactated) 1,000 mls @ 40 mls/hr IV ASDIRECTED MAULIK Last Admin: 09/28/17 16:41 Dose: 40 mls/hr Oxytocin/Lactated Ringer's (Pitocin In Lr 10 Units/1,000 Ml) 10 unit in 1,000 mls @ 12 mls/hr IV TITRATE MAULIK; Protocol Last Titration: 09/28/17 18:42 Dose: 999 mls/hr Oxytocin/Lactated Ringer's (Pitocin In Lr 10 Units/1,000 Ml) 10 unit in 1,000 mls @ 500 mls/hr IV .CONTINUOUS [facility] Misoprostol (Cytotec) Confirm Administered Dose 600 mcg .ROUTE .STK-MED ONE Stop: 09/28/17 18:53 Last Admin: 09/28/17 19:45 Dose: Not Given Misoprostol (Cytotec) 600 mcg PO NOW STA Stop: 09/28/17 19:05 Last Admin: 09/28/17 18:55 Dose: 600 mcg Nalbuphine HCl (Nubain) 10 mg IVPUSH Q2H PRN PRN Reason: Pain (moderate 4-6) Last Admin: 09/28/17 11:31 Dose: 10 mg Ondansetron HCl (Zofran) 4 mg IVPUSH Q4H PRN PRN Reason: Nausea/Vomiting Last Admin: 09/28/17 19:39 Dose: 4 mg Ondansetron HCl (Zofran) 4 mg IVPUSH ONETIME PRN PRN Reason: Nausea/Vomiting Sodium Chloride (Saline Flush) 10 ml FLUSH ASDIRECTED PRN PRN Reason: Keep Vein Open
--- NOTE | 2017-09-29 08:11 | PCM48HPAN ---
Post Anesthesia Note - EVALUATION WITHIN 48HRS OF ANESTHETIC Vital Signs in Normal Range: Yes Patient Participated in Evaluation: Yes Respiratory Function Stable: Yes Airway Patent: Yes Cardiovascular Function Stable: Yes Hydration Status Stable: Yes Pain Control Satisfactory: Yes Nausea and Vomiting Control Satisfactory: Yes Mental Status Recovered: Yes Blood Pressure: 101/60 - COMMENTS/OBSERVATIONS Free Text/Narrative:: Marcelle has been up walking around. No complaints of headache or back pain.
[2017-09-29 12:11] VITALS: BP 110/62
== END 2017-09-29 19:48 | disposition home or self-care (01) | DRG 775 ==
LOC: JD.OB 07:12 → OBSVTOIN 18:40 → JD.OB 18:41
PROVIDERS: ADMIT Obstetrics & Gynecology; ATTEND Obstetrics & Gynecology
PROC: 10E0XZZ Delivery of Products of Conception, External Approach (ICD-10-PCS; principal; 2017-09-28)
PROC: 0KQM0ZZ Repair Perineum Muscle, Open Approach (ICD-10-PCS; 2017-09-28)
PROC: 10907ZC Drainage of Amniotic Fluid, Therapeutic from Products of Conception, Via Natural or Artificial Opening (ICD-10-PCS; 2017-09-28)
PROC: 3E033VJ Introduction of Other Hormone into Peripheral Vein, Percutaneous Approach (ICD-10-PCS; 2017-09-28)
PROC: 00HU33Z Insertion of Infusion Device into Spinal Canal, Percutaneous Approach (ICD-10-PCS; 2017-09-28)
PROC: 3E0R3BZ Introduction of Anesthetic Agent into Spinal Canal, Percutaneous Approach (ICD-10-PCS; 2017-09-28)
DX: O32.6XX0 Maternal care for compound presentation, not applicable or unspecified (principal); O69.81X0 Labor and delivery complicated by cord around neck, without compression, not applicable or unspecified; O70.1 Second degree perineal laceration during delivery; Z3A.39 39 weeks gestation of pregnancy; Z37.0 Single live birth
CPT/HCPCS: 36415; 51702; 59025; 59300; 59409; 80306; 85027; 86850; 86870; 86900; 86901; A9270-GY; J2300; J2405; J2590; J3010; J7120

== ENCOUNTER 2019-06-14 23:09 | Emergency (ER) | payer MEDICAID ==
[2019-06-14 23:24] VITALS: BP 121/72; PULSE 81
[2019-06-15] MEDS ORDERED: Lactated Ringers 1,000 ML IV ONE (01:33)
[2019-06-15] MEDS ORDERED: Haloperidol Lactate 5 MG/ML SDV IM ONE (01:33)
[2019-06-15] MEDS ORDERED: Benztropine 1 MG Tab PO STA (01:33)
[2019-06-15] MEDS ORDERED: Ondansetron 4 MG/2 ML SDV IVPUSH ONE (01:34)
--- NOTE | 2019-06-15 01:39 | EDM.PDOC ---
ED HPI GENERAL MEDICAL PROBLEM - General Chief Complaint: Headache Stated Complaint: HEADACHE Time Seen by Provider: 06/15/19 01:17 Source of Information: Reports: Patient History Limitations: Reports: No Limitations - History of Present Illness INITIAL COMMENTS - FREE TEXT/NARRATIVE: Ms. Renteria is a very pleasant 23-year-old woman with a past medical history significant for untreated depression, and ADHD, for which she takes Vyvanse, however, she states that she has not taken any since 06/11/2018 due to the development of flulike symptoms at that time, including red eyes, body aches , fever up to 103 degrees s on 06/13/2019, cough, sore chest, and watery diarrhea. No dyspnea or sore throat sore throat. She states that she has had a headache that has been coming and going since then. She has been taking Tylenol Severe Cold & Flu. She now presents to the ED stating that she developed a severe headache around 17:00 this evening. It is felt across her forehead, behind both eyes, and both temples. It is sharp and throbbing in character. She reports both photophobia and phonophobia. She reports blurry vision to both eyes, but no wavy lines or flashing lights. She has vomited 4 times. No tingling, numbness, or weakness. She states that she has had similar headaches in the past, when . She calls her current headache a migraine, although has never seen a Neurologist , has never undergone an imaging study of her head, has never been formally diagnosed with migraines, and has never been prescribed an anti-migraine medicine. The patient drove herself to the ED. The patient's PCP is Delmi Campos NP. Her Short Piece Handler is Dr. Zeinab Monzon. She did not receive an influenza vaccine this season, and declined an offer to receive one here today. 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: , Spontaneous (x 1) Psychiatric History: Reports: ADHD, Anxiety (untreated), Depression (untreated) - Past Surgical History HEENT Surgical History: Reports: Oral Surgery (wisdom teeth extraction) Female Surgical History: Reports: Dilitation & Evacuation Social & Family History - Family History Family Medical History: Noncontributory - Tobacco Use Smoking Status *Q: Current Every Day Smoker Years of Tobacco use: 8 Packs/Tins Daily: 0.5 Packs/Tins Daily Comment: Down from 1 ppd - Caffeine Use Caffeine Use: Reports: None - Alcohol Use Alcohol Use History: No - Recreational Drug Use Recreational Drug Use: Yes Drug Use in Last 12 Months: No Recreational Drug Type: Reports: Marijuana/Hashish (last smoked in 2018) - Living Situation & Occupation Living situation: Reports: Single, with Family (2 daughters) 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 - Physical Exam Exam: See Below Exam Limited By: No Limitations General Appearance: Alert, WD/WN, Mild Distress (Appears uncomfortable and photophobic) Eye Exam: Bilateral Eye: EOMI, Normal Inspection, PERRL Ears: Normal External Exam, Normal Canal, Hearing Grossly Normal, Normal TMs Nose: Normal Inspection, Normal Mucosa, No Blood Throat/Mouth: Normal Inspection, Normal Lips, Normal Teeth, Normal Gums, Normal Oropharynx, Normal Voice, No Airway Compromise Head Exam: Atraumatic, Normocephalic Neck: Normal Inspection, Supple, Non-Tender, Full Range of Motion. No: Lymphadenopathy (L), Lymphadenopathy (R) Respiratory/Chest: No Respiratory Distress, Lungs Clear, Normal Breath Sounds, No Accessory Muscle Use Cardiovascular: Normal Peripheral Pulses, Regular Rate, Rhythm, No Edema, No Gallop, No JVD, No Murmur, No Rub GI/Abdominal: Normal Bowel Sounds, Soft, Non-Tender, No Organomegaly, No Distention, No Abnormal Bruit, No Mass (Female) Exam: Deferred Rectal (Female) Exam: Deferred Neuro Exam (Abbreviated): Alert, Oriented, CN II-XII Intact, Normal Cognition, No Motor/Sensory Deficits Back Exam: Normal Inspection, Full Range of Motion, NT Extremities: Normal Inspection, Normal Range of Motion, No Pedal Edema, Normal Capillary Refill Psychiatric: Normal Affect Skin Exam: Warm, Dry, Intact, Normal Color, No Rash Course - Vital Signs Last Recorded V/S: Last Vital Signs Temp 38.2 C H 06/14/19 23:22 Pulse 81 06/14/19 23:22 Resp 20 06/14/19 23:22 BP 121/72 06/14/19 23:22 Pulse Ox 99 06/14/19 23:22 - Orders/Labs/Meds Meds: Medications Discontinued Medications Generic Name Dose Route Start Last Admin Trade Name Freq PRN Reason Stop Dose Admin Benztropine Mesylate 1 mg 06/15/19 01:33 06/15/19 01:43 Cogentin PO 06/15/19 01:34 1 mg ONETIME STA Administration Haloperidol Lactate 5 mg 06/15/19 01:33 06/15/19 01:45 Haldol IM 06/15/19 01:34 5 mg ONETIME ONE Administration Lactated Ringer's 1,000 mls @ 999 mls/hr 06/15/19 01:33 06/15/19 01:43 Ringers, Lactated IV 06/15/19 02:33 999 mls/hr .BOLUS ONE Administration Ondansetron HCl 4 mg 06/15/19 01:34 06/15/19 01:44 Zofran IVPUSH 06/15/19 01:35 4 mg ONETIME ONE Administration - Re-Assessments/Exams Free Text/Narrative Re-Assessment/Exam: 06/15/19 01:36 The patient is most likely suffering from a migraine headache, although it is distinctly possible that her headache is related to the abrupt cessation of her Vyvanse on Tuesday. I have ordered IM Haldol with oral Cogentin, IV Zofran, and 1 L of LR. Although her neurologic examination is normal, a CT scan of her head without contrast is indicated, since she has never previously had an imaging study of her head. Lastly, we will collect an influenza swab once she is feeling better. 06/15/19 02:29 The patient's influenza swab has returned negative. Notified by Alea IRENE that the patient reported that her headache is improving. 06/15/19 03:10 CT of the head without contrast is read by [facility] as "No acute findings to explain reported symptoms, within the limitations noted above." 06/15/19 03:20 Following IM Haldol, the patient reports complete resolution of her headache, confirming that her headache was migrainous in etiology. I will discharge her home with a prescription for rizatriptan and Zofran. Departure - Departure Time of Disposition: 03:21 Disposition: Home, Self-Care 01 Condition: Good Clinical Impression: Migraine headache Qualifiers: Migraine type: unspecified Status migrainosus presence: without status migrainosus Intractability: not intractable Qualified Code(s): G43.909 - Migraine, unspecified, not intractable, without status migrainosus - Discharge Information *PRESCRIPTION DRUG MONITORING PROGRAM REVIEWED*: Not Applicable *COPY OF PRESCRIPTION DRUG MONITORING REPORT IN PATIENT ZACH: Not Applicable Prescriptions: Ondansetron [Zofran ODT] 1 tab PO Q8H PRN #10 tab.dis PRN Reason: Nausea/Vomiting Rizatriptan Benzoate [Rizatriptan] 1 tab PO Q2H PRN #3 tab.rapdis PRN Reason: Headache Instructions: Migraine Headache, [id number] Referrals: Delmi Campos NP [ED Midlevel Provider] - Zeinab Monzon MD [Physician] - Forms: ED Department Discharge Additional Instructions: You were seen in the emergency room after developing a severe headache with sensitivity to light and sound, nausea, vomiting, and blurry vision. Workup in the ER included a CT scan of her head and an influenza swab. The CT scan of your head was normal. Your influenza swab returned negative. Your headache resolved after you were given a neuroleptic medication, confirming that your headache was a migraine. We recommend that you stay adequately hydrated and get plenty of rest tonight in a dark, quiet place. Prescriptions for the anti-migraine medicine rizatriptan (Maxalt) and the anti- nausea medicine Zofran have been sent to the [facility], located just south and across [address] from [facility]. Dissolve 1 tablet of rizatriptan in your mouth, like a lozenge, at the earliest sign of a migraine. You may repeat after 2 hours, if necessary, to a maximum of 3 tablets within a 24-hour period. You may dissolve 1 tablet of Zofran on your tongue up to every 8 hours, as needed for nausea/vomiting. If the rizatriptan works to treat your migraines, talk to your PCP, Delmi Campos NP, about getting a refill prescription. If any other problems, please do not hesitate to return to the ER. Sepsis Event Note - Evaluation Sepsis Screening Result: No Definite Risk - Focused Exam Date Exam was Performed: 06/15/19 Time Exam was Performed: 19:07
--- NOTE | 2019-06-15 09:46 | CT ---
Head CT Technique: Multiple axial sections through the brain were obtained. Intravenous contrast was not utilized. Comparison: No prior intracranial imaging is available. Findings: Significant motion artifact is noted within the base cuts. Within this limitation, ventricles along with basal cisterns and sulci over the convexities appear within normal limits for the patient's age. No abnormal parenchymal densities are seen. No evidence of intracranial hemorrhage. No midline shift or mass effect is seen. No gross calvarial abnormality is appreciated. Impression: 1. Significant motion artifact obscuring the base cuts. 2. Nothing acute is otherwise seen on this limited head CT exam. Diagnostic code #3 Agree with preliminary report issued by [facility], preliminary report finalized on 06/15/19, 4:08 AM Central Time This report was dictated in [place] Standard Time
== END 2019-06-15 03:37 | disposition home or self-care (01) ==
LOC: JD.ED 23:09
DX: G43.909 Migraine, unspecified, not intractable, without status migrainosus (principal); F90.9 Attention-deficit hyperactivity disorder, unspecified type; F17.210 Nicotine dependence, cigarettes, uncomplicated
CPT/HCPCS: 70450; 87804; 96361; 96372; 96374; 99284; A9270; J1630; J2405; J7120

== ENCOUNTER 2020-06-22 09:56 | Emergency (ER) | payer MEDICAID ==
[2020-06-22 10:34] VITALS: BP 123/65; PULSE 91
[2020-06-22] MEDS ORDERED: Sodium Chloride 0.9% 10 ML Syringe FLUSH PRN (11:09)
[2020-06-22] MEDS ORDERED: Metoclopramide 10 MG/2 ML SDV IVPUSH ONE (11:09)
[2020-06-22] MEDS ORDERED: diphenhydrAMINE 50 MG/ML SDV IVPUSH ONE (11:09)
[2020-06-22] MEDS ORDERED: Sodium Chloride 0.9% 1,000 ML IV ONE (11:09)
--- NOTE | 2020-06-22 11:25 | EDM.PDOC ---
ED HPI GENERAL MEDICAL PROBLEM - General Chief Complaint: Headache Stated Complaint: MIGRAINE Time Seen by Provider: 06/22/20 11:03 Source of Information: Reports: Patient, RN Notes Reviewed History Limitations: Reports: No Limitations - History of Present Illness INITIAL COMMENTS - FREE TEXT/NARRATIVE: Patient is a 24-year-old female who presents to the ED for the evaluation of a migraine headache. Patient notes that she is 17 weeks , she is a G3, P2, her CARPENTER is Dr. Monzon. Patient notes that she commonly gets migraines or headaches like this when she is . She notes that this headache started Tuesday night, she did take her Phenergan and Zofran for nausea but has not had much relief. She took a little bit of Tylenol this morning as well to try to relieve the headache without relief. She complains of severe light and sound sensitivity. She states that it is hard to pinpoint the headache as it just is all over her head. She has been seen in this ER for headaches in the past, and was given Haldol and Cogentin, and she notes that this made her feel like a zombie for days. She was also prescribed an antimigraine headache from Dr. Franz but states she did not fill it because she was scared that it was a same medication he gave her in the ER. Other than that she has had no fevers or chills, cough or shortness of breath. Headache Pain Score (Numeric/FACES): 9 - Related Data Allergies Allergy/AdvReac Type Severity Reaction Status Date / Time No Known Allergies Allergy Verified 06/22/20 10:34 Home Meds: Home Meds Ondansetron [Zofran ODT] 1 tab PO Q8H PRN #10 tab.dis 06/15/19 [Rx] Rizatriptan Benzoate [Rizatriptan] 1 tab PO Q2H PRN #3 tab.rapdis 06/15/19 [Rx] Past Medical History - Past Health History Medical/Surgical History: Denies Medical/Surgical History CARPENTER History: Reports: , Spontaneous Other CARPENTER History: miscarriage Psychiatric History: Reports: ADHD, Anxiety, Depression Other Psychiatric History: depression - Past Surgical History HEENT Surgical History: Reports: Oral Surgery Other HEENT Surgeries/Procedures: cyst moved on vocal cords as a child Female Surgical History: Reports: Dilitation & Evacuation Social & Family History - Family History Family Medical History: No Pertinent Family History - Tobacco Use Tobacco Use Status *Q: Never Tobacco User - Caffeine Use Caffeine Use: Reports: None - Recreational Drug Use Recreational Drug Use: No - Living Situation & Occupation Living situation: Reports: Single, with Family (2 daughters) 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 - Physical Exam Exam: See Below Exam Limited By: No Limitations General Appearance: Alert, WD/WN, No Apparent Distress Eye Exam: Bilateral Eye: EOMI, Normal Inspection, PERRL Respiratory/Chest: No Respiratory Distress, Lungs Clear, Normal Breath Sounds, No Accessory Muscle Use, Chest Non-Tender Cardiovascular: Normal Peripheral Pulses, Regular Rate, Rhythm, No Edema Neuro Exam (Abbreviated): Alert, Oriented, Normal Cognition, No Motor/Sensory Deficits Extremities: Normal Inspection, Normal Capillary Refill Psychiatric: Normal Affect, Normal Mood Skin Exam: Warm, Dry, Intact, Normal Color, No Rash Course - Vital Signs Last Recorded V/S: Last Vital Signs Temp 98.8 F 06/22/20 10:25 Pulse 91 06/22/20 10:25 Resp 18 06/22/20 10:25 BP 123/65 06/22/20 10:25 Pulse Ox 98 06/22/20 10:25 - Orders/Labs/Meds Orders: Active Orders 24 hr Category Date Time Status Peripheral IV Care [RC] . DIRECTED Care 06/22/20 11:09 Ordered Sodium Chloride 0.9% [Saline Flush] Med 06/22/20 11:09 Active 10 ml FLUSH ASDIRECTED PRN Peripheral IV Insertion Adult [OM.PC] Routine Oth 06/22/20 11:09 Ordered Medication Orders Sodium Chloride (Saline Flush) 10 ml FLUSH ASDIRECTED PRN PRN Reason: Keep Vein Open Last Admin: 06/22/20 11:30 Dose: 10 ml Documented by: FRACISCO Meds: Medications Generic Name Dose Route Start Last Admin Trade Name Freq PRN Reason Stop Dose Admin Sodium Chloride 10 ml 06/22/20 11:09 06/22/20 11:30 Saline Flush FLUSH 10 ml ASDIRECTED PRN Administration Keep Vein Open Discontinued Medications Generic Name Dose Route Start Last Admin Trade Name Freq PRN Reason Stop Dose Admin Diphenhydramine HCl 25 mg 06/22/20 11:09 06/22/20 11:42 Benadryl IVPUSH 06/22/20 11:10 25 mg ONETIME ONE Administration Hydromorphone HCl 0.5 mg 06/22/20 11:35 06/22/20 11:43 Dilaudid IVPUSH 06/22/20 11:36 0.5 mg ONETIME ONE Administration Sodium Chloride 1,000 mls @ 999 mls/hr 06/22/20 11:09 06/22/20 11:30 Normal Saline IV 06/22/20 12:09 999 mls/hr ASDIRECTED ONE Administration Metoclopramide HCl 10 mg 06/22/20 11:09 06/22/20 11:39 Reglan IVPUSH 06/22/20 11:10 10 mg ONETIME ONE Administration - Re-Assessments/Exams Free Text/Narrative Re-Assessment/Exam: 06/22/20 11:30 Patient presents to the ED for the evaluation of a headache. She is 17 weeks , we will go ahead and give her IV fluids, IV Benadryl and Reglan to start, and give p.o. Tylenol once the other medications have been given time to work. 06/22/20 12:05 Patient was concerned about the IV Reglan, I did explain this medication to her in further detail, she is worried that PO meds will take too long. I did order 0.5mg IV Dilaudid for headache pain instead. 06/22/20 12:32 Patient was reassessed at bedside, and states she is feeling much better, she is hungry and is wishing to go home at this time. Will discharge her home with general recommendations. She notes that she has nausea meds she can pickle solution maker at the pharmacy. Departure - Departure Time of Disposition: 12:32 Disposition: Home, Self-Care 01 Condition: Good Clinical Impression: Migraine Qualifiers: Migraine type: unspecified Status migrainosus presence: without status migrainosus Intractability: not intractable Qualified Code(s): G43.909 - Migraine, unspecified, not intractable, without status migrainosus - Discharge Information *PRESCRIPTION DRUG MONITORING PROGRAM REVIEWED*: No *COPY OF PRESCRIPTION DRUG MONITORING REPORT IN PATIENT ZACH: No Instructions: Migraine Headache, [id number] Referrals: Zeinab Monzon MD [Primary Care Provider] - Forms: ED Department Discharge Additional Instructions: You were evaluated in the ED for your headache. You were given a combination of medications and IV fluid for management. This did seem to provide you pretty good relief of your symptoms. Recommend that you go home and rest in a quiet, darkened room. Try also to keep well hydrated. Please return to the ED if your symptoms should change or worsen. Sepsis Event Note (ED) - Evaluation Sepsis Screening Result: No Definite Risk - Focused Exam Vital Signs: Vital Signs Temp Pulse Resp BP Pulse Ox 06/22/20 10:25 98.8 F 91 18 123/65 98 - My Orders Last 24 Hours: My Active Orders 06/22/20 11:09 Peripheral IV Care [RC] . DIRECTED Sodium Chloride 0.9% [Saline Flush] 10 ml FLUSH ASDIRECTED PRN Peripheral IV Insertion Adult [OM.PC] Routine - Assessment/Plan Last 24 Hours: My Active Orders 06/22/20 11:09 Peripheral IV Care [RC] . DIRECTED Sodium Chloride 0.9% [Saline Flush] 10 ml FLUSH ASDIRECTED PRN Peripheral IV Insertion Adult [OM.PC] Routine
[2020-06-22] MEDS ORDERED: HYDROmorphone 0.5 MG/0.5 ML Syringe IVPUSH ONE (11:35)
== END 2020-06-22 12:48 | disposition home or self-care (01) ==
LOC: JD.ED 09:56
DX: O99.352 Diseases of the nervous system complicating pregnancy, second trimester (principal); G43.909 Migraine, unspecified, not intractable, without status migrainosus; Z3A.17 17 weeks gestation of pregnancy
CPT/HCPCS: 96374; 96375; 99283; J1170; J1200; J2765; J7030

== ENCOUNTER 2020-11-23 07:11 | Inpatient (IN) | payer OTHER, MEDICAID ==
[~2020-11-23 07:11] MED LIST: Bupivacaine 0.25% 10 ML SDV ONE; ePHEDrine 50 MG/ML SDV ONE
[2020-11-23] MEDS ORDERED: Sodium Chloride 0.9% 10 ML Syringe FLUSH PRN (07:17)
[2020-11-23] MEDS ORDERED: Ondansetron 4 MG/2 ML SDV IVPUSH PRN (07:17)
--- NOTE | 2020-11-23 07:21 | PCM.LDHP ---
L&D History of Present Illness - General Date of Service: 11/23/20 Admit Problem/Dx: Patient Status Order with Admit Dx/Problem 11/23/20 07:17 Patient Status [ADT] Routine Admission Diagnosis/Problem Admission Diagnosis/Problem Normal in third trimester Source of Information: Patient History Limitations: Reports: No Limitations - History of Present Illness Introduction:: Patient is a 25 y/o at 39 0/7 wks who presented for elective IOL. Doing well. 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: , Spontaneous (18 week demise of baby with oomphalocele), Therapeutic : 5 Para: 2 LMP (Approximate): Psychiatric History: Reports: ADHD, Anxiety, Depression - Past Surgical History Female Surgical History: Reports: Breast Implant, Dilitation & Evacuation, Other (See Below) (labia reduction) Social & Family History - Family History Family Medical History: No Pertinent Family History - Tobacco Use Tobacco Use Status *Q: Former Tobacco User - Caffeine Use Caffeine Use: Reports: None - Alcohol Use Alcohol Use History: No - Recreational Drug Use Drug Use in Last 12 Months: No - Living Situation & Occupation Living situation: Reports: Single, with Family (2 daughters) 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) H&P Review of Systems - Review of Systems: Review Of Systems: See Below General: Reports: No Symptoms Pulmonary: Reports: No Symptoms Cardiovascular: Reports: No Symptoms Gastrointestinal: Reports: No Symptoms Genitourinary: Reports: No Symptoms Musculoskeletal: Reports: No Symptoms Psychiatric: Reports: Anxiety Neurological: Reports: No Symptoms L&D Exam - Exam Exam: See Below - OB Specific Contraction Intensity: Irritability Movement: Active Heart Tones: Present Heart Tones per Min: 125 Heart Rate (FHR) Variability: Moderate (6-25 bmp) Presentation: Vertex - Tucker Score Tucker Score Cervix Position: Midposition Tucker Score Consistency: Medium Tucker Score Effacement: 51-70% Tucker Score Dilation: 1-2 cm Tucker Score 's Station: -2 Tucker Score Total: 6 - Exam General: Alert, Oriented, Cooperative Lungs: Clear to Auscultation, Normal Respiratory Effort Cardiovascular: Regular Rate, Regular Rhythm GI/Abdominal Exam: Soft, Non-Tender Genitourinary: Normal external exam Extremities: Normal Inspection Skin: Warm, Dry, Intact - Patient Data Result Diagrams: 11/23/20 08:10 - Problem List (1) 39 weeks gestation of SNOMED Code(s): 32728284 ICD Code: Z3A.39 - 39 WEEKS GESTATION OF Status: Acute Current Visit: Yes (2) Rh negative state in antepartum period SNOMED Code(s): 713997716 ICD Code: O09.899 - SUPERVISION OF OTHER HIGH RISK PREGNANCIES, UNSP TRIMESTER Status: Acute Current Visit: No Problem List Initiated/Reviewed/Updated: Yes Orders Last 24hrs: Active Orders 24 hr Category Date Time Status Patient Status [ADT] Routine ADT 11/23/20 07:17 Ordered Communication Order [RC] ASDIRECTED Care 11/23/20 07:17 Ordered Communication Order [RC] ASDIRECTED Care 11/23/20 07:17 Ordered Communication Order [RC] ASDIRECTED Care 11/23/20 07:17 Ordered Non Stress Test [RC] PER UNIT ROUTINE Care 11/23/20 07:17 Ordered Notify Provider [RC] ASDIRECTED Care 11/23/20 07:17 Ordered Notify Provider [RC] PRN Care 11/23/20 07:17 Ordered Peripheral IV Care [RC] . DIRECTED Care 11/23/20 07:17 Ordered Up ad Patti [RC] ASDIRECTED Care 11/23/20 07:18 Ordered Vital Signs [RC] ASDIRECTED Care 11/23/20 07:17 Ordered Regular Diet [DIET] Diet 11/23/20 Breakfast Ordered CBC W/O DIFF,HEMOGRAM [HEME] Routine Lab 11/23/20 07:17 Ordered CORONAVIRUS COVID-19 MARY [MOLEC] Stat Lab 11/23/20 07:19 Ordered HEP C VIRUS AB [REF] Routine Lab 11/23/20 07:17 Ordered RAPID PLASMA REAGIN,RPR [CHEM] Routine Lab 11/23/20 07:17 Ordered TYPE AND SCREEN [BBK] Routine Lab 11/23/20 07:17 Ordered Lactated Ringers [Ringers, Lactated] 1,000 ml Med 11/23/20 07:30 Ordered IV ASDIRECTED Nalbuphine [Nubain] Med 11/23/20 07:17 Ordered 10 mg IVPUSH Q2H PRN Ondansetron [Zofran] Med 11/23/20 07:17 Ordered 4 mg IVPUSH Q4H PRN Oxytocin/Lactated Ringers [Pitocin in LR 10 Units/1,000 Med 11/23/20 07:30 Ordered ML] 10 unit in 1,000 ml IV .CONTINUOUS Oxytocin/Lactated Ringers [Pitocin in LR 10 Units/1,000 Med 11/23/20 07:30 Ordered ML] 10 unit in 1,000 ml IV TITRATE Sodium Chloride 0.9% [Saline Flush] Med 11/23/20 07:17 Ordered 10 ml FLUSH ASDIRECTED PRN Electronic Heart Tones Internal [WOMSER] Per Unit Oth 11/23/20 07:17 Ordered Routine Peripheral IV Insertion Adult [OM.PC] Routine Oth 11/23/20 07:17 Ordered Resuscitation Status Routine Resus Stat 11/23/20 07:17 Ordered Assessment/Plan Comment:: * Admitted for planned IOL * Pitocin and AROM * GBS negative, no need for antibiotics * Pain management per patient preference * Anticipate * Assess baby blood type following delivery to see if additional Rhogam required
[2020-11-23] MEDS ORDERED: Oxytocin/Lactated Ringers 10 UNIT/1,000 ML BAG IV SCH ×2 (07:30)
[2020-11-23] MEDS: Lactated Ringers 1,000 ML IV SCH ×5 (08:11→18:20)
[2020-11-23] MEDS ORDERED: fentaNYL 100 MCG/2 ML SDV EPIDUR PRN (09:26)
[2020-11-23] MEDS ORDERED: ePHEDrine 50 MG/ML SDV IVPUSH PRN (09:26)
[2020-11-23] MEDS ORDERED: diphenhydrAMINE 50 MG/ML SDV IVPUSH PRN (09:26)
[2020-11-23] MEDS: Nalbuphine 10 MG/1 ML Vial IVPUSH PRN ×2 (10:45→16:29)
[2020-11-23] MEDS: Bupivacaine/fentaNYL/NS 100 ML Bag EPIDUR PRN ×2 (11:04→18:19)
--- NOTE | 2020-11-23 11:26 | PCM.PREANE ---
Preanesthetic Assessment - Procedure Proposed Procedure: rona - Anesthesia/Transfusion/Family Hx Anesthesia History: Prior Anesthesia Without Reaction Family History of Anesthesia Reaction: No Transfusion History: No Prior Transfusion(s) - Review of Systems General: No Symptoms Pulmonary: No Symptoms Cardiovascular: No Symptoms Gastrointestinal: Abdominal Pain (contractions) Neurological: No Symptoms Other: Reports: None - Physical Assessment Vital Signs: Last Vital Signs Temp 97.9 F 11/23/20 07:17 Pulse 81 11/23/20 10:00 Resp 16 11/23/20 07:17 BP 109/65 11/23/20 10:00 Pulse Ox 99 11/23/20 08:03 Height: 5 ft 7 in Weight: 75.296 kg ASA Class: 2 Mental Status: Alert & Oriented x3 Airway Class: Mallampati = 1 Dentition: Reports: Normal Dentition Thyro-Mental Finger Breadths: 3 Mouth Opening Finger Breadths: 3 ROM/Head Extension: Full Lungs: Clear to Auscultation, Normal Respiratory Effort Cardiovascular: Regular Rate, Regular Rhythm - Lab Values: Laboratory Last Values WBC 8.33 K/mm3 (3.98-10.04) 11/23/20 08:10 RBC 4.41 M/mm3 (3.98-5.22) 11/23/20 08:10 Hgb 11.4 gm/dl (11.2-15.7) D 11/23/20 08:10 Hct 35.8 % (34.1-44.9) 11/23/20 08:10 MCV 81.2 fl (79.4-94.8) D 11/23/20 08:10 MCH 25.9 pg (25.6-32.2) 11/23/20 08:10 MCHC 31.8 g/dl (32.2-35.5) L 11/23/20 08:10 RDW Std Deviation 43.5 fL (36.4-46.3) 11/23/20 08:10 Plt Count 154 K/mm3 (182-369) L 11/23/20 08:10 MPV 11.7 fl (9.4-12.3) 11/23/20 08:10 SARS-CoV-2 RNA (MARY) Negative (NEGATIVE) 11/23/20 07:20 Blood Type O NEGATIVE 11/23/20 08:10 Gel Antibody Screen Positive 11/23/20 08:10 - Allergies Allergies/Adverse Reactions: Allergies Allergy/AdvReac Type Severity Reaction Status Date / Time No Known Allergies Allergy Verified 10/21/20 17:47 - Blood Blood Available: No - Acknowledgements Anesthesia Type Planned: Epidural Pt an Appropriate Candidate for the Planned Anesthesia: Yes Alternatives and Risks of Anesthesia Discussed w Pt/Guardian: Yes Pt/Guardian Understands and Agrees with Anesthesia Plan: Yes PreAnesthesia Questionnaire - Past Health History Medical/Surgical History: Denies Medical/Surgical History Cardiovascular History: Reports: None Respiratory History: Reports: None Gastrointestinal History: Reports: GERD (with preg) SAP SD ANALYST History: Reports: , Spontaneous , Therapeutic Other OB/BYN History: miscarriage Psychiatric History: Reports: ADHD, Anxiety, Depression Other Psychiatric History: depression - Past Surgical History HEENT Surgical History: Reports: Oral Surgery Other HEENT Surgeries/Procedures: cyst moved on vocal cords as a child Female Surgical History: Reports: Breast Implant, Dilitation & Evacuation, Other (See Below) - SUBSTANCE USE Tobacco Use Status *Q: Former Tobacco User Tobacco Use Within Last Twelve Months: No Second Hand Smoke Exposure: No Days Per Week of Alcohol Use: 0 Recreational Drug Use History: Yes Recreational Drug Type: Reports: Marijuana/Hashish (denies) - HOME MEDS Home Medications: Home Meds Ondansetron [Zofran ODT] 1 tab PO Q8H PRN #10 tab.dis 06/15/19 [Rx] Vits #93/Iron Fum/FA [ Formula Tablet] 1 each PO DAILY 08/15/20 [History] - CURRENT (IN HOUSE) MEDS Current Meds: Current Medications Diphenhydramine HCl (Diphenhydramine 50 Mg/Ml Sdv) 25 mg IVPUSH Q6H PRN PRN Reason: pruritis Ephedrine Sulfate (Ephedrine 50 Mg/Ml Sdv) 5 mg IVPUSH ASDIRECTED PRN PRN Reason: Hypotension Fentanyl (Fentanyl 100 Mcg/2 Ml Sdv) 100 mcg EPIDUR Q3H PRN PRN Reason: Pain Last Admin: 11/23/20 11:04 Dose: 100 mcg Documented by: Fentanyl/Bupivacaine HCl (Bupivacaine/Fentanyl/Ns 100 Ml Bag) 100 ml EPIDUR ASDIRECTED PRN PRN Reason: Pain Last Admin: 11/23/20 11:04 Dose: 100 ml Documented by: Oxytocin/Lactated Ringer's (Pitocin In Lr 10 Units/1,000 Ml) 10 unit in 1,000 mls @ 12 mls/hr IV TITRATE MAULIK; Protocol Last Titration: 11/23/20 09:15 Dose: 6 munits/min, 36 mls/hr Documented by: Oxytocin/Lactated Ringer's (Pitocin In Lr 10 Units/1,000 Ml) 10 unit in 1,000 mls @ 500 mls/hr IV .CONTINUOUS MAULIK Lactated Ringer's (Ringers, Lactated) 1,000 mls @ 40 mls/hr IV ASDIRECTED MAULIK Last Admin: 11/23/20 10:49 Dose: 40 mls/hr Documented by: Nalbuphine HCl (Nalbuphine 10 Mg/1 Ml Vial) 10 mg IVPUSH Q2H PRN PRN Reason: Pain Last Admin: 11/23/20 10:45 Dose: 10 mg Documented by: Ondansetron HCl (Ondansetron 4 Mg/2 Ml Sdv) 4 mg IVPUSH Q4H PRN PRN Reason: Nausea/Vomiting Sodium Chloride (Sodium Chloride 0.9% 10 Ml Syringe) 10 ml FLUSH ASDIRECTED PRN PRN Reason: Keep Vein Open
[2020-11-23] MEDS ORDERED: Oxytocin/Lactated Ringers 20 UNIT/1,000 ML BAG IV SCH (18:30)
[2020-11-23] MEDS ORDERED: Methylergonovine 0.2 MG/1 ML Amp ONE (19:50)
[2020-11-23] MEDS ORDERED: Misoprostol 200 MCG Tab ONE (19:52)
[2020-11-23] MEDS ORDERED: Methylergonovine 0.2 MG/1 ML Amp IM STA (20:04)
[2020-11-23] MEDS ORDERED: Misoprostol 200 MCG Tab PO STA (20:05)
--- NOTE | 2020-11-23 20:05 | PCM.DEL ---
L & D Note - General Info Date of Service: 11/23/20 - Delivery Note Labor: Induced by ARM, Induced by Oxytocin Delivery Outcome: Livebirth Infant Delivery Method: Spontaneous Vaginal Delivery-Single Infant Delivery Mode: Spontaneous Presentation: Right Occiput Anterior (TIMUR) Nuchal Cord: None Anesthesia Type: Epidural Amniotic Fluid Description: Clear Episiotomy Type: None Laceration: 1st Degree Suture type: Vicryl Suture size: 2-0 Placenta: Intact, Spontaneous Cord: 3 Vessels Estimated Blood Loss: 450 Resuscitation Needed: Yes [place]: Bulb Syringe, Stimulated, Warmed, [place] Used, Warmer Used Delivery Comments (Free Text/Narrative):: Patient found to be complete and began pushing. With maternal pushing effort head delivered from TIMUR presentation. No nuchal cord present. With gentle downward traction shoulders and body delivered. Infant placed on maternal abdomen. Cord clamped and cut. Cord blood obtained. Placenta allowed time to separate and expelled intact. Did have strauss bleeding and so given 0.2 mg IM methergine and 600 mcg of cytotec. Responded well to this. Did have a small 1st degree laceration. Repaired with a 2-0 Vicryl - General Info Date of Service: 11/23/20 - Patient Data Vitals - Most Recent: Last Vital Signs Temp 36.6 C 11/23/20 07:17 Pulse 81 11/23/20 10:00 Resp 16 11/23/20 07:17 BP 109/65 11/23/20 10:00 Pulse Ox 99 11/23/20 08:03 Weight - Most Recent: 75.296 kg I&O - Last 24 Hours: Intake & Output 11/23/20 11/23/20 11/23/20 06:59 14:59 22:59 Intake Total 120 160 Balance 120 160 - Exam Urinary Catheter Total Time: 0Days 0Hours - Problem List & Annotations (1) 39 weeks gestation of SNOMED Code(s): 45450514 Code(s): Z3A.39 - 39 WEEKS GESTATION OF Status: Acute (2) Rh negative state in antepartum period SNOMED Code(s): 864705512 Code(s): O09.899 - SUPERVISION OF OTHER HIGH RISK PREGNANCIES, UNSP TRIMESTER Status: Acute (3) Vaginal delivery SNOMED Code(s): 065970343 Code(s): O80 - ENCOUNTER FOR FULL-TERM UNCOMPLICATED DELIVERY Status: Acute (4) hemorrhage SNOMED Code(s): 17263902 Code(s): O72.1 - OTHER IMMEDIATE HEMORRHAGE Status: Acute - Problem List Review Problem List Initiated/Reviewed/Updated: Yes - My Orders Last 24 Hours: My Active Orders 11/23/20 Breakfast Regular Diet [DIET] 11/23/20 07:17 Patient Status [ADT] Routine Communication Order [RC] ASDIRECTED Communication Order [RC] ASDIRECTED Communication Order [RC] ASDIRECTED Notify Provider [RC] ASDIRECTED Notify Provider [RC] PRN Vital Signs [RC] 03,,,21 Nalbuphine [Nubain] 10 mg IVPUSH Q2H PRN Ondansetron [Zofran] 4 mg IVPUSH Q4H PRN Sodium Chloride 0.9% [Saline Flush] 10 ml FLUSH ASDIRECTED PRN Electronic Heart Tones Internal [WOMSER] Per Unit Routine Peripheral IV Insertion Adult [OM.PC] Routine Resuscitation Status Routine 11/23/20 07:18 Up ad Patti [RC] ASDIRECTED 11/23/20 07:30 Lactated Ringers [Ringers, Lactated] 1,000 ml IV ASDIRECTED Oxytocin/Lactated Ringers [Pitocin in LR 10 Units/1,000 ML] 10 unit in 1,000 ml IV .CONTINUOUS Oxytocin/Lactated Ringers [Pitocin in LR 10 Units/1,000 ML] 10 unit in 1,000 ml IV TITRATE 11/23/20 08:10 ANTIBODY IDENTIFICATION [BBK] Routine HEP C VIRUS AB [REF] Routine RAPID PLASMA REAGIN,RPR [CHEM] Routine TYPE AND SCREEN [BBK] Routine 11/23/20 18:21 Communication Order [RC] ASDIRECTED 11/23/20 18:30 Oxytocin/Lactated Ringers [Pitocin in LR 20 Units/1,000 ML] 20 unit in 1,000 ml IV TITRATE 11/23/20 20:04 Methylergonovine [Methergine] 0.2 mg IM NOW STA 11/23/20 20:05 miSOPROStoL [Cytotec] 600 mcg PO NOW STA - Assessment Assessment:: PPD#0 - Plan Plan:: * Routine cares * Breast feeding * Will assess baby blood type to see if Rhogam required * Discharge in 1-2 days
[2020-11-23] MEDS ORDERED: Docusate Sodium 100 MG Cap PO PRN (21:40)
[2020-11-23] MEDS ORDERED: Acetaminophen 325 MG Tab PO PRN (21:40)
[2020-11-23] MEDS ORDERED: Benzocaine/Menthol 20%-0.5% Spray 56 GM Canister TOP PRN (21:40)
[2020-11-23] MEDS ORDERED: LORazepam 0.5 MG Tab PO PRN (21:40)
[2020-11-23] MEDS ORDERED: Witch Hazel Medicated Pads 40/Jar TOP PRN (21:40)
[2020-11-23] MEDS ORDERED: Acetaminophen/oxyCODONE 325-5 MG Tab PO PRN (21:40)
[2020-11-23] MEDS ORDERED: Ibuprofen 600 MG Tab PO PRN (21:40)
[2020-11-24] MEDS ORDERED: Zolpidem 10 MG Tab PO PRN (01:04)
[2020-11-24 04:41] VITALS: BP 110/67; PULSE 120
[2020-11-24] MEDS ORDERED: Diazepam 2 MG Tab PO ONE (05:40)
--- NOTE | 2020-11-24 05:53 | PCM.PNPP ---
- General Info Date of Service: 11/24/20 Functional Status: Reports: Pain Controlled, Tolerating Diet, Ambulating, Urinating, New Symptoms - Review of Systems General: Reports: No Symptoms Pulmonary: Reports: No Symptoms Cardiovascular: Reports: No Symptoms Gastrointestinal: Reports: No Symptoms Genitourinary: Reports: No Symptoms Musculoskeletal: Reports: No Symptoms Psychiatric: Reports: Anxiety - Patient Data Vital Signs - Most Recent: Last Vital Signs Temp 36.7 C 11/24/20 03:42 Pulse 120 H 11/24/20 03:42 Resp 15 11/24/20 03:42 BP 110/67 11/24/20 03:42 Pulse Ox 97 11/24/20 03:42 Weight - Most Recent: 75.296 kg I&O - Last 24 Hours: Intake & Output 11/23/20 11/23/20 11/24/20 14:59 22:59 06:59 Intake Total 985 856 2348 Output Total 117 Balance 507 463 4484 Lab Results - Last 24 Hours: Laboratory Results - last 24 hr 11/23/20 11/23/20 11/23/20 Range/Units 07:20 08:10 08:10 WBC 8.33 (3.98-10.04) K/mm3 RBC 4.41 (3.98-5.22) M/mm3 Hgb 11.4 D (11.2-15.7) gm/dl Hct 35.8 (34.1-44.9) % MCV 81.2 D (79.4-94.8) fl MCH 25.9 (25.6-32.2) pg MCHC 31.8 L (32.2-35.5) g/dl RDW Std Deviation 43.5 (36.4-46.3) fL Plt Count 154 L (182-369) K/mm3 MPV 11.7 (9.4-12.3) fl SARS-CoV-2 RNA (MARY) Negative (NEGATIVE) Blood Type O NEGATIVE Gel Antibody Screen Positive Screen RhIG Candidate? Rhogam Indicated 11/24/20 Range/Units 01:46 WBC (3.98-10.04) K/mm3 RBC (3.98-5.22) M/mm3 Hgb (11.2-15.7) gm/dl Hct (34.1-44.9) % MCV (79.4-94.8) fl MCH (25.6-32.2) pg MCHC (32.2-35.5) g/dl RDW Std Deviation (36.4-46.3) fL Plt Count (182-369) K/mm3 MPV (9.4-12.3) fl SARS-CoV-2 RNA (MARY) (NEGATIVE) Blood Type Cancelled Gel Antibody Screen Cancelled Screen 0 ros/5 flds - neg RhIG Candidate? Yes Rhogam Indicated Cancelled Med Orders - Current: Current Medications Acetaminophen (Acetaminophen 325 Mg Tab) 650 mg PO Q4H PRN PRN Reason: mild pain or fever Last Admin: 11/24/20 03:38 Dose: 650 mg Documented by: Benzocaine/Menthol (Benzocaine/Menthol 20%-0.5% [place] 56 Gm Canister) 0 gm TOP ASDIRECTED PRN PRN Reason: Perineal Comfort Measure Last Admin: 11/23/20 22:13 Dose: 1 applic Documented by: Docusate Sodium (Docusate Sodium 100 Mg Cap) 100 mg PO BID PRN PRN Reason: Constipation Last Admin: 11/24/20 00:58 Dose: 100 mg Documented by: Ibuprofen (Ibuprofen 600 Mg Tab) 600 mg PO Q6H PRN PRN Reason: Mild pain or fever Last Admin: 11/24/20 00:58 Dose: 600 mg Documented by: Lorazepam (Lorazepam 0.5 Mg Tab) 0.5 mg PO Q4H PRN PRN Reason: Anxiety Last Admin: 11/23/20 22:10 Dose: 0.5 mg Documented by: Oxycodone/Acetaminophen (Acetaminophen/Oxycodone 325-5 Mg Tab) 1 tab PO Q4H PRN PRN Reason: Pain (moderate 4-6) Witch Phoebe (Witch Phoebe Medicated Pads 40/Jar) 1 pad TOP ASDIRECTED PRN PRN Reason: Perineal Comfort Measure Last Admin: 11/23/20 22:13 Dose: 1 applic Documented by: Zolpidem Tartrate (Zolpidem 10 Mg Tab) 10 mg PO ONETIME PRN PRN Reason: Insomnia Last Admin: 11/24/20 01:25 Dose: 10 mg Documented by: Discontinued Medications Diazepam (Diazepam 2 Mg Tab) 2 mg PO ONETIME ONE Stop: 11/24/20 05:41 Diphenhydramine HCl (Diphenhydramine 50 Mg/Ml Sdv) 25 mg IVPUSH Q6H PRN PRN Reason: pruritis Ephedrine Sulfate (Ephedrine 50 Mg/Ml Sdv) 5 mg IVPUSH ASDIRECTED PRN PRN Reason: Hypotension Fentanyl (Fentanyl 100 Mcg/2 Ml Sdv) 100 mcg EPIDUR Q3H PRN PRN Reason: Pain Last Admin: 11/23/20 11:04 Dose: 100 mcg Documented by: Fentanyl/Bupivacaine HCl (Bupivacaine/Fentanyl/Ns 100 Ml Bag) 100 ml EPIDUR ASDIRECTED PRN PRN Reason: Pain Last Admin: 11/23/20 18:19 Dose: 100 ml Documented by: Oxytocin/Lactated Ringer's (Pitocin In Lr 10 Units/1,000 Ml) 10 unit in 1,000 mls @ 12 mls/hr IV TITRATE MAULIK; Protocol Last Titration: 11/23/20 18:21 Dose: 22 munits/min, 132 mls/hr Documented by: Oxytocin/Lactated Ringer's (Pitocin In Lr 10 Units/1,000 Ml) 10 unit in 1,000 mls @ 500 mls/hr IV .CONTINUOUS MAULIK Lactated Ringer's (Ringers, Lactated) 1,000 mls @ 40 mls/hr IV ASDIRECTED MAULIK Last Admin: 11/23/20 18:20 Dose: 40 mls/hr Documented by: Oxytocin/Lactated Ringer's (Pitocin In Lr 20 Units/1,000 Ml) 20 unit in 1,000 mls @ 66 mls/hr IV TITRATE MAULIK; Protocol Methylergonovine Maleate (Methylergonovine 0.2 Mg/1 Ml Amp) Confirm Administered Dose 0.2 mg .ROUTE .STK-MED ONE Stop: 11/23/20 19:51 Last Admin: 11/23/20 21:41 Dose: Not Given Documented by: Methylergonovine Maleate (Methylergonovine 0.2 Mg/1 Ml Amp) 0.2 mg IM NOW STA Stop: 11/23/20 20:05 Last Admin: 11/23/20 22:14 Dose: 0.2 mg Documented by: Misoprostol (Misoprostol 200 Mcg Tab) Confirm Administered Dose 600 mcg .ROUTE .STK-MED ONE Stop: 11/23/20 19:53 Last Admin: 11/23/20 21:42 Dose: Not Given Documented by: Misoprostol (Misoprostol 200 Mcg Tab) 600 mcg PO NOW STA Stop: 11/23/20 20:06 Last Admin: 11/23/20 19:57 Dose: 600 mcg Documented by: Nalbuphine HCl (Nalbuphine 10 Mg/1 Ml Vial) 10 mg IVPUSH Q2H PRN PRN Reason: Pain Last Admin: 11/23/20 16:29 Dose: 10 mg Documented by: Ondansetron HCl (Ondansetron 4 Mg/2 Ml Sdv) 4 mg IVPUSH Q4H PRN PRN Reason: Nausea/Vomiting Last Admin: 11/23/20 16:30 Dose: 4 mg Documented by: Sodium Chloride (Sodium Chloride 0.9% 10 Ml Syringe) 10 ml FLUSH ASDIRECTED PRN PRN Reason: Keep Vein Open - Infant Interaction Infant Disposition, : Not Applicable Support Person: - Recovery Exam Fundal Tone: Firm Fundal Level: 1 Fingerbreadths Below Umbilicus Fundal Placement: Midline Lochia Amount: Small Lochia Color: Rubra/Red - Exam General: Alert, Oriented, Cooperative Psy/Mental Status: Anxious, Other (tearful) - Problem List & Annotations (1) 39 weeks gestation of SNOMED Code(s): 14782651 Code(s): Z3A.39 - 39 WEEKS GESTATION OF Status: Acute (2) Rh negative state in antepartum period SNOMED Code(s): 156018330 Code(s): O09.899 - SUPERVISION OF OTHER HIGH RISK PREGNANCIES, UNSP TRIMESTER Status: Acute (3) Vaginal delivery SNOMED Code(s): 934087247 Code(s): O80 - ENCOUNTER FOR FULL-TERM UNCOMPLICATED DELIVERY Status: Acute - Problem List Review Problem List Initiated/Reviewed/Updated: Yes - My Orders Last 24 Hours: My Active Orders 11/23/20 07:17 Resuscitation Status Routine 11/23/20 08:10 ANTIBODY IDENTIFICATION [BBK] Routine HEP C VIRUS AB [REF] Routine RAPID PLASMA REAGIN,RPR [CHEM] Routine TYPE AND SCREEN [BBK] Routine 11/23/20 Dinner Regular Diet [DIET] 11/23/20 21:40 Acetaminophen [TylenoL] 650 mg PO Q4H PRN Acetaminophen/oxyCODONE [Percocet 325-5 MG] 1 tab PO Q4H PRN Benzocaine/Menthol [Dermoplast Pain Relief [place]] See Dose Instructions TOP ASDIRECTED PRN Docusate Sodium [Colace] 100 mg PO BID PRN Ibuprofen [Motrin] 600 mg PO Q6H PRN LORazepam [Ativan] 0.5 mg PO Q4H PRN witch Phoebe [Tucks] 1 pad TOP ASDIRECTED PRN Heat Therapy [OM.PC] PRN 11/23/20 21:40 Activity as Tolerated [RC] PER UNIT ROUTINE Vital Signs [RC] 03,09,15,21 Assess Lochia [WOMSER] Per Unit Routine Assess Uterine Involution [WOMSER] Per Unit Routine Breast Pump [WOMSER] Per Unit Routine Ice Therapy [OM.PC] Per Unit Routine Perineal Care [OM.PC] Per Unit Routine Peripheral IV Discontinue [OM.PC] Routine Sitz Bath [OM.PC] Per Unit Routine 11/24/20 00:54 Ready for Discharge [RC] PER UNIT ROUTINE 11/24/20 01:04 Zolpidem [Ambien] 10 mg PO ONETIME PRN 11/24/20 21:40 Heat Therapy [OM.PC] PRN - Assessment Assessment:: PPD#1 - Plan Plan:: Overnight baby boy Gigi with some apnea episodes requiring transfer to [facility] for NICU evaluation. Patient with severe anxiety since this. Did receive Ativan overnight. States she does not plan on breast feeding and has done better in the past on Valium. Would like a prescription for this. Reviewed would think best if patient was on SSRI and only used benzodiazepine periodically. Patient hesitant, but does eventually agree to start Lexapro. Will follow up in 2 weeks. Desires discharge this AM so can follow baby to [place] Baby Rh positive, received Rhogam
== END 2020-11-24 06:20 | disposition home or self-care (01) | DRG 806 ==
LOC: JD.OBCHECK 07:11 → JD.OB 07:12 → OBSVTOIN 20:05 → UNDODISOB 11-24 06:20
PROVIDERS: ADMIT Obstetrics & Gynecology; ATTEND Obstetrics & Gynecology
PROC: 10E0XZZ Delivery of Products of Conception, External Approach (ICD-10-PCS; principal; 2020-11-23)
PROC: 10907ZC Drainage of Amniotic Fluid, Therapeutic from Products of Conception, Via Natural or Artificial Opening (ICD-10-PCS; 2020-11-23)
PROC: 0HQ9XZZ Repair Perineum Skin, External Approach (ICD-10-PCS; 2020-11-23)
PROC: 3E0R3BZ Introduction of Anesthetic Agent into Spinal Canal, Percutaneous Approach (ICD-10-PCS; 2020-11-23)
PROC: 00HU33Z Insertion of Infusion Device into Spinal Canal, Percutaneous Approach (ICD-10-PCS; 2020-11-23)
DX: O70.0 First degree perineal laceration during delivery (principal); O72.1 Other immediate postpartum hemorrhage; Z37.0 Single live birth; Z3A.39 39 weeks gestation of pregnancy; Z20.822 Contact with and (suspected) exposure to COVID-19
CPT/HCPCS: 01967; 36415; 51702; 59025; 59409; 85027; 85461; 86592; 86803; 86850; 86870; 86900; 86901; A9270-GY; J2210; J2300; J2405; J2590; J2790; J3010; J3490; J7120; U0002

== ENCOUNTER 2021-07-02 04:11 | Emergency (ER) | payer MEDICAID ==
[2021-07-02 04:26] VITALS: BP 100/58; PULSE 88
[2021-07-02] MEDS ORDERED: Acetaminophen 325 MG Tab PO ONE (04:49)
[2021-07-02] MEDS ORDERED: Ondansetron 4 MG Tab.DIS PO ONE (04:49)
[2021-07-02] MEDS: Ketorolac 15 MG/ML SDV IM ONE ×2 (05:03→05:15)
[2021-07-02 05:54] LABS: CORONAVIRUS COVID-19 NAA POSITIVE (NEGATIVE)
== END 2021-07-02 05:19 | disposition home or self-care (01) ==
LOC: JD.ED 04:11
DX: U07.1 COVID-19 (principal); J06.9 Acute upper respiratory infection, unspecified; Z87.891 Personal history of nicotine dependence
CPT/HCPCS: 0241U; 99283; A9270; J1885

== ENCOUNTER 2021-07-25 10:05 | Emergency (ER) | payer OTHER, MEDICAID ==
[2021-07-25 10:27] VITALS: BP 104/55; PULSE 98
== END 2021-07-25 11:46 | disposition home or self-care (01) ==
LOC: JD.ED 10:05
DX: S06.0X0A Concussion without loss of consciousness, initial encounter (principal); S83.92XA Sprain of unspecified site of left knee, initial encounter; S83.91XA Sprain of unspecified site of right knee, initial encounter; S46.911A Strain of unspecified muscle, fascia and tendon at shoulder and upper arm level, right arm, initial encounter; S46.912A Strain of unspecified muscle, fascia and tendon at shoulder and upper arm level, left arm, initial encounter; V49.40XA Driver injured in collision with unspecified motor vehicles in traffic accident, initial encounter; Y92.410 Unspecified street and highway as the place of occurrence of the external cause
CPT/HCPCS: 730302650; 73030-50; 735642650; 73564-50; 99283; 99284

== ENCOUNTER 2022-01-04 11:29 | Emergency (ER) | payer OTHER, MEDICAID | END 2022-01-04 13:34 | disposition left against medical advice (07) | LOC: JD.ED 11:29 | DX: Z53.21 Procedure and treatment not carried out due to patient leaving prior to being seen by health care provider (principal) ==

== ENCOUNTER 2022-01-04 21:43 | Emergency (ER) | payer OTHER, MEDICAID ==
[2022-01-04 22:11] VITALS: BP 98/72; PULSE 98
[2022-01-04] MEDS ORDERED: Sodium Chloride 0.9% 10 ML Syringe FLUSH PRN (22:18)
[2022-01-04] MEDS ORDERED: Sodium Chloride 0.9% 1,000 ML IV ONE (22:18)
[2022-01-04] MEDS ORDERED: Metoclopramide 10 MG/2 ML SDV IVPUSH ONE (22:18)
[2022-01-04] MEDS ORDERED: Ketorolac 30 MG/ML SDV IVPUSH ONE (22:18)
[2022-01-04] MEDS ORDERED: diphenhydrAMINE 50 MG/ML SDV IVPUSH ONE (22:18)
[2022-01-04] MEDS ORDERED: Nitrofurantoin Monohydrate/Macrocrystalline 100 MG Cap PO ONE (23:31)
== END 2022-01-04 23:54 | disposition home or self-care (01) ==
LOC: JD.ED 21:43
DX: N39.0 Urinary tract infection, site not specified (principal); Z79.899 Other long term (current) drug therapy; Z86.16 Personal history of COVID-19
CPT/HCPCS: 36415; 80053; 81001; 85025; 96361; 96374; 96375; 99284; A9270; J1200; J1885; J2765; J3490; J7030

== ENCOUNTER 2022-01-05 10:37 | Emergency (ER) | payer OTHER, MEDICAID | END 2022-01-05 11:45 | disposition left against medical advice (07) | LOC: JD.ED 10:37 | DX: Z53.21 Procedure and treatment not carried out due to patient leaving prior to being seen by health care provider (principal) ==

== ENCOUNTER 2022-01-05 18:17 | Emergency (ER) | payer OTHER, MEDICAID ==
[2022-01-05 19:06] VITALS: BP 109/73; PULSE 58
[2022-01-05] MEDS ORDERED: Ondansetron 4 MG/2 ML SDV IVPUSH ONE (19:35)
[2022-01-05] MEDS ORDERED: Sodium Chloride 0.9% 1,000 ML IV ONE (19:35)
[2022-01-05] MEDS ORDERED: HYDROmorphone 1 MG/ML Syringe IVPUSH ONE ×2 (19:35→20:58)
[2022-01-05] MEDS ORDERED: Iopamidol 612 MG/ML 100 ML Bottle IVPUSH ONE (20:25)
[2022-01-05] MEDS ORDERED: Sodium Chloride 0.9% 10 ML Syringe FLUSH PRN (20:33)
[2022-01-05 20:44] LABS: ESTIMATED GFR 127 mL/min (>60)
== END 2022-01-05 22:25 | disposition home or self-care (01) ==
LOC: JD.ED 18:17
DX: K52.9 Noninfective gastroenteritis and colitis, unspecified (principal); Z79.899 Other long term (current) drug therapy; Z86.16 Personal history of COVID-19; Z20.822 Contact with and (suspected) exposure to COVID-19
CPT/HCPCS: 36415; 74177; 80053; 80306; 81001; 81025; 83605; 83690; 83735; 85007; 85027; 86140; 87086; 87635; 96361; 96374; 96375; 96376; 99284; J1170; J2405; J3490; J7030; Q9967; U0002

== ENCOUNTER 2022-01-06 17:14 | Emergency (ER) | payer OTHER, MEDICAID | END 2022-01-06 18:00 | disposition left against medical advice (07) | LOC: JD.ED 17:14 | DX: Z53.21 Procedure and treatment not carried out due to patient leaving prior to being seen by health care provider (principal) ==

== ENCOUNTER 2022-01-27 10:04 | Emergency (ER) | payer OTHER, MEDICAID ==
[2022-01-27 10:21] VITALS: BP 104/73; PULSE 72
[2022-01-27] MEDS ORDERED: Sodium Chloride 0.9% 1,000 ML IV STA (11:09)
[2022-01-27] MEDS ORDERED: Ondansetron 4 MG/2 ML SDV IVPUSH ONE (11:09)
[2022-01-27] MEDS ORDERED: HYDROmorphone 0.5 MG/0.5 ML Syringe IVPUSH ONE (11:28)
[2022-01-27] MEDS ORDERED: diphenhydrAMINE 50 MG/ML SDV IVPUSH ONE (11:28)
[2022-01-27 11:55] LABS: CORONAVIRUS COVID-19 NAA NEGATIVE (NEGATIVE)
[2022-01-27] MEDS ORDERED: Ibuprofen 600 MG Tab PO ONE (12:14)
== END 2022-01-27 14:30 | disposition home or self-care (01) ==
LOC: JD.ED 10:04
DX: G43.909 Migraine, unspecified, not intractable, without status migrainosus (principal); Z79.899 Other long term (current) drug therapy; Z86.16 Personal history of COVID-19; Z20.822 Contact with and (suspected) exposure to COVID-19
CPT/HCPCS: 0241U; 36415; 71045; 80053; 81001; 85025; 96361; 96374; 96375; 99284; A9270; J1170; J1200; J2405; J7030

== ENCOUNTER 2022-03-08 14:03 | Emergency (ER) | payer OTHER, MEDICAID ==
[2022-03-08] MEDS ORDERED: HYDROmorphone 0.5 MG/0.5 ML Syringe IVPUSH ONE ×2 (16:30→17:45)
[2022-03-08] MEDS ORDERED: Dicyclomine 10 MG Cap PO ONE (16:34)
[2022-03-08] MEDS ORDERED: Ondansetron 4 MG/2 ML SDV IVPUSH ONE (16:34)
[2022-03-31 13:00] VITALS: BP 130/102; PULSE 61
[2022-04-04 10:23] LABS: ESTIMATED GFR 122 mL/min (>60)
== END 2022-03-08 20:06 | disposition home or self-care (01) ==
LOC: JD.ED 14:03
DX: K52.9 Noninfective gastroenteritis and colitis, unspecified (principal)
CPT/HCPCS: 36415; 80053; 80306; 81001; 83605; 83735; 85025; 86140; 96361; 96374; 96375; 96376; 99284; A9270; J1170; J2405; 99283